=== PATIENT | female | born 1965 | race Caucasian/White ===

== ENCOUNTER 2018-02-27 12:02 | Inpatient (IN) | payer MEDICAID ==
[~2018-02-27] VITALS: Ht 167.6 cm; Wt 87.0 kg
[2018-02-27] MEDS ORDERED: ACETAMINOPHEN 325 MG TAB PO STA (12:33)
[2018-02-27] MEDS ORDERED: SODIUM CHLORIDE 0.9% 1L BAG IV* STA (12:33)
[2018-02-27] MEDS ORDERED: morphine 4 MG/ML VIAL IV STA (12:52)
[2018-02-27] MEDS ORDERED: ONDANSETRON 4 MG INJ IV STA (12:52)
[2018-02-27] MEDS ORDERED: PIPER-TAZO 3.375 GM IV (PMX) 100 ML IVPB ONE (13:00)
[2018-02-27] MEDS ORDERED: ONDANSETRON 4 MG INJ IV PRN ×2 (14:30→16:30)
[2018-02-27] MEDS ORDERED: ACETAMINOPHEN 325 MG TAB PO PRN (14:30)
--- NOTE | 2018-02-27 14:41 | ERD ---
ER Documentation Chief Complaint Chief Complaint Fever with abdominal pain and vomiting HPI Patient is a 52-year-old female with thyroid disease who presents with fever and abdominal pain. The patient had 1 month ago high fever and pain around the bellybutton. Went away but yesterday she started again with fever and abdominal pain. She had vomiting. She went to an urgent care 1 month ago was given a pain medicine but has not taken any pain medicine yet today. The pain is in the right side of her abdomen. Upon review of old medical records this is the patient's first visit to the emergency department. The patient does not currently have a primary doctor. ROS All systems reviewed and are negative except as per history of present illness. Medications Home Meds No Active Prescriptions or Reported Meds Allergies Allergies: Coded Allergies: No Known Allergy (Unverified , 02/27/18) PMhx/Soc History of Surgery: No Anesthesia Reaction: No Hx Neurological Disorder: No Hx Respiratory Disorders: No Hx Cardiac Disorders: No Hx Psychiatric Problems: No Hx Miscellaneous Medical Probl: Yes (thyroid, not taking meds.) Hx Alcohol Use: No Hx Substance Use: No Hx Tobacco Use: No Smoking Status: Never smoker FmHx Family History: No diabetes Physical Exam Vitals Vital Signs Date Temp Pulse Resp B/P (MAP) Pulse Ox O2 O2 Flow FiO2 Time Delivery Rate 02/27/18 101.5 110 20 128/76 94 12:15 (93) 02/27/18 101.5 110 20 128/76 94 12:13 (93) Physical Exam Const: Moderate distress Head: Atraumatic Eyes: Normal Conjunctiva ENT: Normal External Ears, Nose and Mouth. Neck: Full range of motion. No meningismus. Resp: Clear to auscultation bilaterally Cardio: Regular rate and rhythm, no murmurs Abd: Soft, right upper and right lower quadrant tenderness to palpation without rebound Skin: No petechiae or rashes Back: No midline or flank tenderness Ext: No cyanosis, or edema Neur: Awake and alert Psych: Normal Mood and Affect Result Diagram: 02/27/18 1255 02/27/18 1255 Results 24 hrs Laboratory Tests Test 02/27/18 12:55 02/27/18 13:00 White Blood Count 14.7 10^3/ul Red Blood Count 4.61 10^6/ul Hemoglobin 13.7 g/dl Hematocrit 40.2 % Mean Corpuscular Volume 87.2 fl Mean Corpuscular Hemoglobin 29.7 pg Mean Corpuscular Hemoglobin Concent 34.1 g/dl Red Cell Distribution Width 12.1 % Platelet Count 296 10^3/UL Mean Platelet Volume 10.4 fl Immature Granulocytes % 0.300 % Neutrophils % 76.4 % Lymphocytes % 17.2 % Monocytes % 5.7 % Eosinophils % 0.1 % Basophils % 0.3 % Nucleated Red Blood Cells % 0.0 /100WBC Immature Granulocytes # 0.050 10^3/ul Neutrophils # 11.2 10^3/ul Lymphocytes # 2.5 10^3/ul Monocytes # 0.8 10^3/ul Eosinophils # 0.0 10^3/ul Basophils # 0.0 10^3/ul Nucleated Red Blood Cells # 0.0 10^3/ul Prothrombin Time 14.7 Sec Prothrombin Time Ratio 1.1 INR International Normalized Ratio 1.13 Activated Partial Thromboplast Time 38.1 Sec Urine Color YELLOW Urine Clarity CLEAR Urine pH 6.0 Urine Specific [place] 1.015 Urine Ketones TRACE mg/dL Urine Nitrite NEGATIVE mg/dL Urine Bilirubin NEGATIVE mg/dL Urine Urobilinogen 2+ mg/dL Urine Leukocyte Esterase TRACE [place]/ul Urine Microscopic RBC 1 /HPF Urine Microscopic WBC 4 /HPF Urine Hemoglobin 1+ mg/dL Urine Glucose NEGATIVE mg/dL Urine Total Protein NEGATIVE mg/dl Sodium Level 138 mmol/L Potassium Level 3.9 mmol/L Chloride Level 100 mmol/L Carbon Dioxide Level 30 mmol/L Anion Gap 8 Blood Urea Nitrogen 8 mg/dl Creatinine 0.71 mg/dl Est Glomerular Filtrat Rate mL/min > 60 mL/min Glucose Level 139 mg/dl Calcium Level 9.1 mg/dl Total Bilirubin 0.5 mg/dl Direct Bilirubin 0.00 mg/dl Indirect Bilirubin 0.5 mg/dl Aspartate Amino Transf (AST/SGOT) 17 IU/L Alanine Aminotransferase (ALT/SGPT) 23 IU/L Alkaline Phosphatase 108 IU/L Troponin I < 0.012 ng/ml Total Protein 8.0 g/dl Albumin 3.9 g/dl Globulin 4.10 g/dl Albumin/Globulin Ratio 0.95 Lipase 72 U/L POC Venous Lactate 1.4 mmol/L Current Medications Medications Dose Sig/Melody Start Time Status Last (Trade) Ordered Route PRN Stop Time Admin Dose Reason Admin Sodium 2,640 ml BOLUS OVER 2 02/27/18 DC 02/27/18 Chloride HOURS STAT 12:33 13:22 (NS) IV* 02/27/18 12:34 650 mg ONCE STAT 02/27/18 DC 02/27/18 Acetaminophen PO 12:33 13:21 (Tylenol 02/27/18 Tab) 12:34 Morphine 4 mg ONCE STAT 02/27/18 DC 02/27/18 Sulfate IV 12:52 13:21 (morphine) 02/27/18 12:53 Ondansetron 4 mg ONCE STAT 02/27/18 DC 02/27/18 HCl (Zofran IV 12:52 13:21 Inj) 02/27/18 12:53 Piperacillin 100 ml @ ONCE ONCE 02/27/18 DC 02/27/18 Sod/ 200 mls/hr IVPB 13:00 13:23 Tazobactam 02/27/18 Sod 13:29 Ondansetron 4 mg BRIDGE ORDER 02/27/18 HCl (Zofran PRN IV 14:30 Inj) NAUSEA AND/OR 02/28/18 VOMITING 14:29 650 mg ER BRIDGE 02/27/18 Acetaminophen PRN PO MILD 14:30 (Tylenol PAIN(1-3)OR 02/28/18 Tab) ELEVATED TEMP 14:29 Procedures/MDM CT abdomen pelvis shows acute appendicitis per radiology. Ultrasound of the gallbladder read by radiology. Chest x-ray read by radiology. EKG read by me: Rate/Rhythm: Regular rate and rhythm at a normal rate Intervals: Normal Impression: No evidence of ischemia or arrhythmia Sepsis Documentation: Patient's infectious symptoms have not stabilized and the patient is at risk of rapid decompensation. The patient will be admitted for careful hydration, antibiotic therapy, and infectious source control. SEVERE SEPSIS CRITERIA: Infectious source: Appendicitis End organ damage indicated by: No endorgan damage at this time SEPSIS MANAGEMENT Time of recognition of sepsis: 12:55 PM. Time of recognition of severe sepsis: No severe sepsis at this time. Time of recognition of septic shock: No septic shock at this time. 3 HOUR BUNDLE Blood cultures x 2 before broad-spectrum antibiotics: Yes 30 ml/kg NS bolus completed Initial lactate 1.4 Repeat lactate pending SEPTIC SHOCK ASSESSMENT: No lactic acid > 4.0 No persistent hypotension (SBP < 90 or 40 mmHg drop, MAP < 65) despite 30 mL/kg IV fluid bolus VOLUME REASSESSMENT FOR SEPTIC SHOCK: No septic shock at this time PERSISTENT HYPOTENSION TREATMENT: Comfort care no Central line not Required Vasopressor started not required I considered further perfusion assessment with CVP measurement, SCVO2, bedside ultrasound volume assessment, passive leg raise, trial of further fluid bolus. And proceeded with 30 ml/kg fluid bolus of NSS, broad spectrum antibiotics, and admission. I spoke with Dr. Willoughby the general surgeon novelty balloon assembler and packer who will see the patient in consultation. The patient will be admitted to the care of Dr. Veliz from the panel team to a medical surgical bed. CRITICAL CARE Critical care time 35 minutes Emergent fluid management while maintaining close respiratory support. Provision of immediate and broad-spectrum antibiotic therapy. Simultaneous assessment for possible sources in order to direct targeted therapy. Consideration for invasive and chemical support to prevent cardiopulmonary collapse. Critical care time is independent of procedures performed. Departure Diagnosis: Primary Impression: Appendicitis Appendicitis type: acute appendicitis Acute appendicitis type: unspecified acute appendicitis type Qualified Codes: K35.80 - Unspecified acute appendicitis Additional Impression: Sepsis Sepsis type: sepsis due to unspecified organism Qualified Codes: A41.9 - Sepsis, unspecified organism Condition: SUSHMA Camarena MD Feb 27, 2018 14:41
[2018-02-27 15:54] VITALS: BP 118/58; PULSE 88; RESP 18
[2018-02-27 16:01] VITALS: Ht 167.6 cm; Wt 87.0 kg
--- NOTE | 2018-02-27 16:04 | HP ---
Date/Time of Note Date/Time of Note DATE: 02/27/18 TIME: 16:04 Assessment/Plan VTE Prophylaxis SCD applied (from Nsg): Yes Pharmacological prophylaxis: NA/contraindicated Pharm contraindication: surgical contra Lines/Catheters IV Catheter Type (from Nrsg): Saline Lock Assessment/Plan Assessment/Plan 1. Sepsis secondary to appendicitis - Surgery on board and plans to take to OR tomorrow. Medically cleared to proceed with surgical intervention - Will keep NPO after midnight - IV antibiotics and pain control on board 2. Leukocytosis - secondary to #1 3. Fevers - Tylenol PRN - [place] cultures obtained 4. Diet - regular/NPO after midnight 5. GI ppx - H2 guicho 6. DVT ppx - SCD 7. Code status - Full 8. Disposition - Admit to med/surg for surgical intervention Result Diagram: 02/27/18 1255 02/27/18 1255 Results 24hrs Laboratory Tests Test 02/27/18 12:55 02/27/18 13:00 02/27/18 15:23 White Blood Count 14.7 H Red Blood Count 4.61 Hemoglobin 13.7 Hematocrit 40.2 Mean Corpuscular Volume 87.2 Mean Corpuscular Hemoglobin 29.7 Mean Corpuscular 34.1 Hemoglobin Concent Red Cell Distribution Width 12.1 Platelet Count 296 Mean Platelet Volume 10.4 Immature Granulocytes % 0.300 Neutrophils % 76.4 Lymphocytes % 17.2 Monocytes % 5.7 Eosinophils % 0.1 Basophils % 0.3 Nucleated Red Blood Cells % 0.0 Immature Granulocytes # 0.050 H Neutrophils # 11.2 H Lymphocytes # 2.5 Monocytes # 0.8 Eosinophils # 0.0 Basophils # 0.0 Nucleated Red Blood Cells # 0.0 Prothrombin Time 14.7 Prothrombin Time Ratio 1.1 INR International 1.13 Normalized Ratio Activated Partial Thromboplast 38.1 H Time Urine Color YELLOW Urine Clarity CLEAR Urine pH 6.0 Urine Specific [place] 1.015 Urine Ketones TRACE A Urine Nitrite NEGATIVE Urine Bilirubin NEGATIVE Urine Urobilinogen 2+ H Urine Leukocyte Esterase TRACE A Urine Microscopic RBC 1 Urine Microscopic WBC 4 Urine Hemoglobin 1+ H Urine Glucose NEGATIVE Urine Total Protein NEGATIVE Sodium Level 138 Potassium Level 3.9 Chloride Level 100 Carbon Dioxide Level 30 Anion Gap 8 Blood Urea Nitrogen 8 Creatinine 0.71 Est Glomerular Filtrat > 60 Rate mL/min Glucose Level 139 Calcium Level 9.1 Total Bilirubin 0.5 Direct Bilirubin 0.00 Indirect Bilirubin 0.5 Aspartate Amino 17 Transf (AST/SGOT) Alanine 23 Aminotransferase (ALT/SGPT) Alkaline Phosphatase 108 Troponin I < 0.012 Total Protein 8.0 Albumin 3.9 Globulin 4.10 H Albumin/Globulin Ratio 0.95 Lipase 72 POC Venous Lactate 1.4 0.9 HPI/ROS Admit Date/Time Admit Date/Time Feb 27, 2018 at 14:17 Hx of Present Illness 52 yo F with no significant past medical history presents to ED with worsening RLQ abdominal pain for the past 4 days. Patient states she has been experiencing this intermittent pain in RLQ for the past month but only came today since has been having associated nausea, fever, chills, and loss of appetite for the past 4 days. Patient denies any chest pain, shortness of breath, dizziness, constipation, diarrhea, or urinary issues. She is nervous about going through an appendectomy secondary to son had complications during his recent procedure. ROS All 12 systems reviewed and pertinent positives as per HPI. All others negative. Constitutional: chills, febrile, nausea Eyes: No discharge ENT: No congestion Respiratory: No pain, No shortness of breath, No sputum, No wheezing Cardiovascular: No chest pain, No edema, No lightheadedness, No palpitations Gastrointestinal: pain, nausea; No constipation, No diarrhea, No vomiting Genitourinary: no complaints Musculoskeletal: no complaints Skin: no complaints Neurologic: no complaints Endocrine: no complaints Lymphatic: no complaints Psychological: nl mood/affect Immunologic: no complaints PMH/Family/Social Past Medical History Medical History: no pertinent history Medications Current Medications Ondansetron HCl (Zofran Inj) 4 mg BRIDGE ORDER PRN IV NAUSEA AND/OR VOMITING; Start 02/27/18 at 14:30; Stop 02/28/18 at 14:29 Acetaminophen (Tylenol Tab) 650 mg ER BRIDGE PRN PO MILD PAIN(1-3)OR ELEVATED TEMP; Start 02/27/18 at 14:30; Stop 02/28/18 at 14:29 Coded Allergies: No Known Allergy (Unverified , 02/27/18) Past Surgical History Past Surgical Hx: no surgical history Family History Significant Family History: no pertinent family hx Social History Alcohol Use: none Smoking Status: Never smoker Drug Use: none Exam/Review of Systems Vital Signs Vitals Vital Signs Date Temp Pulse Resp B/P (MAP) Pulse Ox O2 O2 Flow FiO2 Time Delivery Rate 02/27/18 98.9 88 18 118/58 94 Room Air 15:54 (78) Exam Exam General: no acute distress. awake and answering questions appropriately HEENT: NC/AT. PERRL. EOM intact Neck: supple CVS: S1, S2, regular rate and rhythm. no murmurs Lung: clear bilaterally. no wheezing or rhonchi Abd: soft, tender in RLQ, no rebound or guarding. +BS appreciated Ext: moving all extremities. no cyanosis, clubbing or edema Skin: no rashes or lesions appreciated Neuro: no focal deficits appreciated. motor and sensory intact Additional Comments no home medications Imaging: PROCEDURE: CT abdomen and pelvis without contrast. CLINICAL INDICATION: Abdominal pain. Fever. TECHNIQUE: CT scan of the abdomen and pelvis without contrast was performed and is reconstructed at 2.5 mm contiguous axial intervals from the dome of the diaphragm to the inferior pubic rami.. The patient was scanned without intravenous contrast. Sagittal and coronal reformatted images were obtained from the axial source images. The calculated radiation dose measures 1203 mGy centimeters. The CTDI measures 20.7 mGy. Individualized dose optimization technique was used for the performance of this exam. This included 1. Automated exposure control. 2. Adjustment of the mA and / or kV according to the patient's size. 3. Use of iterative reconstructed technique. COMPARISON: None. FINDINGS: The lung bases are clear of any infiltrate or nodule. No effusion is seen. The liver is of normal size and contour with no mass or ductal dilatation. No gallstones are visualized. No splenic, adrenal or pancreatic abnormalities present. Kidneys are of normal size and contour. No calculus or masses seen. There is mild right hydroureter nephrosis. No stones are detected. No bladder masses stone is present. Prostate and seminal vesicles are normal. There is no aneurysm. No adenopathy is present. No bowel mass or obstruction is present. There is phlegmonous infiltration of the fat in the right lower quadrant. Noted is thickening of the wall of the cecum and the ileum. The appendix is not confidently visualized, however, there is suggestion of a markedly distended inflamed appendix medial to the cecum. There are multiple reactive regional nodes . Findings are highly suspicious for appendicitis. Abscess cannot be ruled out. No ascites or gross pneumoperitoneum is visualized. The osseous structures are intact. IMPRESSION: Phlegmonous infiltration fat right pelvis with suggestion of markedly distended inflamed appendix on limited CT without intravenous or adequate oral contrast. Findings are suspicious for acute appendicitis. Abscess cannot be ruled out. Probable reactive thickening wall of terminal ileum and cecum. Reactive regional nodes. Mild right hydroureter nephrosis. No stones seen. The point of obstruction appears to be at the site of the phlegmon. Fatty liver. .Emanuel Jones MD, MD Date Time Electronically viewed and signed by .Emanuel Jones MD, on 02/27/2018 14: 04 PROCEDURE: Chest 1 views. CLINICAL INDICATION: Shortness of breath. Sepsis. TECHNIQUE: Single view of the chest was obtained. COMPARISON: None. FINDINGS: Mediastinum: Enlarged heart. Lungs: Hypoinflated lungs. Elevated right hemidiaphragm. Atelectasis versus minimal infiltrates in the right lower lobe. Atelectasis at the lung bases. No consolidations. No pneumothorax. Osseous structures: Intact. Other: None. IMPRESSION: Cardiomegaly. Atelectasis at the lung bases. Hypoinflated lungs with an elevated right hemidiaphragm. RPTAT: AA .Cristino Vasquez MD, Date Time Electronically viewed and signed by .Cristino Vasquez MD, on 02/27/2018 13:10 PROCEDURE: US Abdomen Limited. CLINICAL INDICATION: Abdominal pain and fever TECHNIQUE: Multiple real-time longitudinal and transverse images were acquired of the patient's right abdomen and retroperitoneum utilizing a curved array tr ansducer. COMPARISON: None FINDINGS: Pancreas: The pancreas is suboptimally visualized. Liver: The liver shows normal shape, parenchymal echogenicity and echotexture. The right hepatic lobe measures 15.0 cm craniocaudal, which is within normal limits. There is no definite focal lesion visualized in the liver. There is appropriate direction of the main portal vein. Bile ducts: The intrahepatic bile ducts are not dilated. Common bile duct measures 3 mm in diameter, within normal limits. Gallbladder: The gallbladder is unremarkable without cholelithiasis, wall thickening, pericholecystic fluid, or sonographic Hirsch's sign. Kidneys: The right kidney measures 10.3 cm in length. The parenchymal echogenicity and thickness appear within normal range. No focal lesions are visualized. No hydronephrosis. There is no ascites visualized in the right abdomen. RPTAT: ZZ IMPRESSION: Unremarkable ultrasound of the right upper abdomen. .Isabel Rangel MD, MD Date Time Electronically viewed and signed by .Isabel Rangel MD, MD on 02/27/2018 14:28 CROW CABEZAS MD Feb 27, 2018 16:04
[2018-02-27] MEDS ORDERED: DOCUSATE SODIUM 100 MG CAP PO PRN (16:30)
[2018-02-27] MEDS ORDERED: MAGNESIUM HYDROXIDE 30ML CUP PO PRN (16:30)
[2018-02-27] MEDS ORDERED: NACL 0.9% 3 ML SYG IV SCH (16:30)
[2018-02-27] MEDS: ACETAMINOPHEN 325 MG TAB PO PRN (18:55)
[2018-02-27 20:00] VITALS: BP 159/77; PULSE 99
[2018-02-27] MEDS: D5W-0.45 NACL + KCL 20 MEQ 1,000 ML IV SCH (20:42)
[2018-02-27] MEDS: FAMOTIDINE 20 MG INJ IV SCH (20:42)
[2018-02-27] MEDS: PIPER-TAZO 3.375 GM IV (PMX) 100 ML IVPB SCH (20:45)
[2018-02-27] MEDS: morphine SULFATE/PF (2 MG/2 ML) SYG IV PRN (20:51)
[2018-02-28] VITALS (27 sets, daily range): BP systolic 106–135; BP diastolic 52–62; PULSE 76–112; RESP 16–25
[2018-02-28] MEDS: HYDROCODONE/APAP (5/325) TAB PO PRN ×2 (00:35→17:01)
[2018-02-28] MEDS: morphine SULFATE/PF (2 MG/2 ML) SYG IV PRN ×3 (01:14→18:14)
[2018-02-28] MEDS: ACETAMINOPHEN 325 MG TAB PO PRN ×2 (03:11→20:46)
[2018-02-28] MEDS: PIPER-TAZO 3.375 GM IV (PMX) 100 ML IVPB SCH ×3 (06:00→21:57)
[2018-02-28] MEDS: D5W-0.45 NACL + KCL 20 MEQ 1,000 ML IV SCH (07:00)
[2018-02-28] MEDS ORDERED: BUPIVACAINE 0.5%/EPI (SDV) 30 ML INJ ONE (07:02)
--- NOTE | 2018-02-28 07:32 | CONS ---
Date/Time of Note Date/Time of Note DATE: 02/28/18 TIME: 07:29 Assessment/Plan Assessment/Plan Assessment/Plan Acute appendicitis Plan: Laparoscopic appendectomy, possible open. I discussed the procedure, indications, alternatives and risks in detail with the patient who has an excellent understanding of the nature of her situation and agrees to the proposed plan of therapy as outlined. Result Diagram: 02/28/18 0550 02/28/18 0550 Results 24hrs Laboratory Tests Test 02/27/18 12:55 02/27/18 13:00 02/27/18 15:23 02/27/18 16:16 White Blood 14.7 H Count Red Blood Count 4.61 Hemoglobin 13.7 Hematocrit 40.2 Mean Corpuscular 87.2 Volume Mean Corpuscular 29.7 Hemoglobin Mean Corpuscular 34.1 Hemoglobin Any nt Red Cell 12.1 Distribution Width Platelet Count 296 Mean Platelet 10.4 Volume Immature 0.300 Granulocytes % Neutrophils % 76.4 Lymphocytes % 17.2 Monocytes % 5.7 Eosinophils % 0.1 Basophils % 0.3 Nucleated Red 0.0 Blood Cells % Immature 0.050 H Granulocytes # Neutrophils # 11.2 H Lymphocytes # 2.5 Monocytes # 0.8 Eosinophils # 0.0 Basophils # 0.0 Nucleated Red 0.0 Blood Cells # Prothrombin Time 14.7 Prothrombin Time 1.1 Ratio INR 1.13 International Normalized Ratio Activated 38.1 H Partial Thrombop last Time Urine Color YELLOW Urine Clarity CLEAR Urine pH 6.0 Urine Specific 1.015 [place] Urine Ketones TRACE A Urine Nitrite NEGATIVE Urine Bilirubin NEGATIVE Urine 2+ H Urobilinogen Urine Leukocyte TRACE A Esterase Urine 1 Microscopic RBC Urine 4 Microscopic WBC Urine Hemoglobin 1+ H Urine Glucose NEGATIVE Urine Total NEGATIVE Protein Sodium Level 138 Potassium Level 3.9 Chloride Level 100 Carbon Dioxide 30 Level Anion Gap 8 Blood Urea 8 Nitrogen Creatinine 0.71 Est Glomerular > 60 Filtrat Rate mL/min Glucose Level 139 Calcium Level 9.1 Total Bilirubin 0.5 Direct Bilirubin 0.00 Indirect 0.5 Bilirubin Aspartate Amino 17 Transf (AST/SGOT ) Alanine 23 Aminotransferase (ALT/SGPT) Alkaline 108 Phosphatase Troponin I < 0.012 Total Protein 8.0 Albumin 3.9 Globulin 4.10 H Albumin/Globulin 0.95 Ratio Lipase 72 POC Venous 1.4 0.9 Lactate Lactic Acid 0.8 Level Test 12/31/18 05:50 White Blood 11.9 H Count Red Blood Count 4.02 L Hemoglobin 11.8 L Hematocrit 36.0 L Mean Corpuscular 89.6 Volume Mean Corpuscular 29.4 Hemoglobin Mean Corpuscular 32.8 Hemoglobin Any nt Red Cell 11.9 Distribution Width Platelet Count 262 Mean Platelet 11.0 H Volume Immature 0.300 Granulocytes % Neutrophils % 75.2 Lymphocytes % 16.4 Monocytes % 7.5 Eosinophils % 0.3 Basophils % 0.3 Nucleated Red 0.0 Blood Cells % Immature 0.040 H Granulocytes # Neutrophils # 9.0 H Lymphocytes # 2.0 Monocytes # 0.9 Eosinophils # 0.0 Basophils # 0.0 Nucleated Red 0.0 Blood Cells # Sodium Level 139 Potassium Level 4.1 Chloride Level 103 Carbon Dioxide 30 Level Anion Gap 6 Blood Urea 6 L Nitrogen Creatinine 0.79 Est Glomerular > 60 Filtrat Rate mL/min Glucose Level 140 Calcium Level 8.3 L Phosphorus Level 4.0 Magnesium Level 2.0 Consultation Date/Type/Reason Admit Date/Time Feb 27, 2018 at 14:17 Date of Consultation: Feb 28, 2018 Type of Consult General surgery Reason for Consultation Acute appendicitis Hx of Present Illness The patient is a 52-year-old female who presents with a one day history of abdominal pain which intensified in severity than localized to the right lower quadrant. She was noted to have a tender right lower quadrant, an elevated white blood cell count, and a CT compatible with acute appendicitis. The patient is admitted and surgical consultation is requested in that regard. Constitutional: no complaints Eyes: no complaints ENT: no complaints Respiratory: no complaints Cardiovascular: no complaints Gastrointestinal: no complaints, pain (Right lower quadrant) Genitourinary: no complaints Musculoskeletal: no complaints Skin: no complaints Neurologic: no complaints Endocrine: no complaints Lymphatic: no complaints Past Medical History Medical History: no pertinent history, other (Exogenous obesity) Medications Current Medications IV Flush (NS 3 ml) 3 ml PER PROTOCOL IV ; Start 02/27/18 at 16:30 Ondansetron HCl (Zofran Inj) 4 mg Q6H PRN IV NAUSEA AND/OR VOMITING Last administered on 02/27/18at 20:52; Admin Dose 4 MG; Start 02/27/18 at 16:30 Acetaminophen (Tylenol Tab) 650 mg Q6H PRN PO PAIN LEVEL 1-3 OR FEVER Last administered on 02/28/18at 03:11; Admin Dose 650 MG; Start 02/27/18 at 16:30 Acetaminophen/ Hydrocodone Bitart ([place] (5/325)) 1 tab Q6H PRN PO MODERATE PAIN LEVEL 4-6 Last administered on 02/28/18at 00:35; Admin Dose 1 TAB; Start 02/27/18 at 16:30 Morphine Sulfate (morphine SULFATE (PF)) 2 mg Q4H PRN IV SEVERE PAIN LEVEL 7-10 Last administered on 02/28/18at 01:14; Admin Dose 2 MG; Start 02/27/18 at 16:30 Docusate Sodium (Colace) 100 mg Q12H PRN PO CONSTIPATION; Start 02/27/18 at 16:30 Magnesium Hydroxide (Milk Of Mag) 30 ml DAILY PRN PO CONSTIPATION; Start 02/27/18 at 16:30 Famotidine (Pepcid Iv) 20 mg Q12 IV Last administered on 02/27/18at 20:42; Admin Dose 20 MG; Start 02/27/18 at 21:00 Piperacillin Sod/ Tazobactam Sod 100 ml @ 200 mls/hr Q8 IVPB Last administered on 02/27/18at 20:45; Admin Dose 200 MLS/HR; Start 02/27/18 at 22:00 Influenza Virus Vaccine Quadrival (Fluzone) 0.5 ml ONCE ONCE IM* ; Start 02/28/18 at 09:00; Stop 02/28/18 at 09:01 Potassium Chloride/Dextrose/ Sod Cl 1,000 ml @ 100 mls/hr Q10H IV Last administered on 02/27/18at 20:42; Admin Dose 100 MLS/HR; Start 02/27/18 at 21:00 Allergies: Coded Allergies: No Known Allergy (Unverified , 02/27/18) Past Surgical History Past Surgical Hx: no surgical history Family History Significant Family History: no pertinent family hx Social History Alcohol Use: none Smoking Status: Never smoker Drug Use: none Exam/Review of Systems Vital Signs Vitals Vital Signs Date Temp Pulse Resp B/P (MAP) Pulse Ox O2 O2 Flow FiO2 Time Delivery Rate 02/28/18 99.5 03:12 02/28/18 101 120/58 95 Room Air 02:00 (78) 02/27/18 18 15:54 Intake and Output 12/02/27/18 02/28/18 1414:59 22:59 06:59 IntakeIntake Total 2640 ml 680 ml OutputOutput Total 400 ml BalanceBalance 2640 ml 280 ml Exam Constitutional: alert, oriented Psych: no complaints Head: normocephalic Eyes: nl conjunctiva ENMT: nl external ears & nose Neck: supple Respiratory: clear to auscultation Cardiovascular: regular rate and rhythm Gastrointestinal: tender (In the right lower quadrant with slight guarding and no rebound) Extremities: normal pulses 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 Medications Medications Current Medications IV Flush (NS 3 ml) 3 ml PER PROTOCOL IV ; Start 02/27/18 at 16:30 Ondansetron HCl (Zofran Inj) 4 mg Q6H PRN IV NAUSEA AND/OR VOMITING Last administered on 02/27/18at 20:52; Admin Dose 4 MG; Start 02/27/18 at 16:30 Acetaminophen (Tylenol Tab) 650 mg Q6H PRN PO PAIN LEVEL 1-3 OR FEVER Last administered on 02/28/18at 03:11; Admin Dose 650 MG; Start 02/27/18 at 16:30 Acetaminophen/ Hydrocodone Bitart ([place] (5/325)) 1 tab Q6H PRN PO MODERATE PAIN LEVEL 4-6 Last administered on 02/28/18at 00:35; Admin Dose 1 TAB; Start 02/27/18 at 16:30 Morphine Sulfate (morphine SULFATE (PF)) 2 mg Q4H PRN IV SEVERE PAIN LEVEL 7-10 Last administered on 02/28/18at 01:14; Admin Dose 2 MG; Start 02/27/18 at 16:30 Docusate Sodium (Colace) 100 mg Q12H PRN PO CONSTIPATION; Start 02/27/18 at 16:30 Magnesium Hydroxide (Milk Of Mag) 30 ml DAILY PRN PO CONSTIPATION; Start 02/27/18 at 16:30 Famotidine (Pepcid Iv) 20 mg Q12 IV Last administered on 02/27/18at 20:42; Admin Dose 20 MG; Start 02/27/18 at 21:00 Piperacillin Sod/ Tazobactam Sod 100 ml @ 200 mls/hr Q8 IVPB Last administered on 02/27/18at 20:45; Admin Dose 200 MLS/HR; Start 02/27/18 at 22:00 Influenza Virus Vaccine Quadrival (Fluzone) 0.5 ml ONCE ONCE IM* ; Start 02/28/18 at 09:00; Stop 02/28/18 at 09:01 Potassium Chloride/Dextrose/ Sod Cl 1,000 ml @ 100 mls/hr Q10H IV Last administered on 02/27/18at 20:42; Admin Dose 100 MLS/HR; Start 02/27/18 at 21:00 KELTON MOREL MD Feb 28, 2018 07:32
--- NOTE | 2018-02-28 07:43 | PREAC ---
Date/Time of Note Date/Time of Note DATE: 02/28/18 TIME: 07:42 Anesthesia Eval and Record Evaluation Time Pre-Procedure Interview DATE: 02/28/18 TIME: 07:42 Age 52 Sex female NPO: 8 hrs Preoperative diagnosis Acute Appendicitis Planned procedure Laparoscopic Appendectomy Past Medical History Past Medical History: Includes Endo: Hypothyroid GI: Obesity Heme: Anemia Surgery & Anesthesia Issues No known issue Meds Anticoagulation: No Beta Jaime within 24 hr: No Reason Beta Jaime not given: Pt. not on B-Jaime No Active Prescriptions or Reported Meds Current Medications IV Flush (NS 3 ml) 3 ml PER PROTOCOL IV ; Start 02/27/18 at 16:30 Ondansetron HCl (Zofran Inj) 4 mg Q6H PRN IV NAUSEA AND/OR VOMITING Last administered on 02/27/18at 20:52; Admin Dose 4 MG; Start 02/27/18 at 16:30 Acetaminophen (Tylenol Tab) 650 mg Q6H PRN PO PAIN LEVEL 1-3 OR FEVER Last administered on 02/28/18at 03:11; Admin Dose 650 MG; Start 02/27/18 at 16:30 Acetaminophen/ Hydrocodone Bitart ([place] (5/325)) 1 tab Q6H PRN PO MODERATE PAIN LEVEL 4-6 Last administered on 02/28/18at 00:35; Admin Dose 1 TAB; Start 02/27/18 at 16:30 Morphine Sulfate (morphine SULFATE (PF)) 2 mg Q4H PRN IV SEVERE PAIN LEVEL 7-10 Last administered on 02/28/18at 01:14; Admin Dose 2 MG; Start 02/27/18 at 16:30 Docusate Sodium (Colace) 100 mg Q12H PRN PO CONSTIPATION; Start 02/27/18 at 16:30 Magnesium Hydroxide (Milk Of Mag) 30 ml DAILY PRN PO CONSTIPATION; Start 02/27/18 at 16:30 Famotidine (Pepcid Iv) 20 mg Q12 IV Last administered on 02/27/18at 20:42; Admin Dose 20 MG; Start 02/27/18 at 21:00 Piperacillin Sod/ Tazobactam Sod 100 ml @ 200 mls/hr Q8 IVPB Last administered on 02/27/18at 20:45; Admin Dose 200 MLS/HR; Start 02/27/18 at 22:00 Influenza Virus Vaccine Quadrival (Fluzone) 0.5 ml ONCE ONCE IM* ; Start 02/28/18 at 09:00; Stop 02/28/18 at 09:01 Potassium Chloride/Dextrose/ Sod Cl 1,000 ml @ 100 mls/hr Q10H IV Last administered on 02/27/18at 20:42; Admin Dose 100 MLS/HR; Start 02/27/18 at 21:00 Meds reviewed: Yes Allergies Coded Allergies: No Known Allergy (Unverified , 02/27/18) Allergies Reviewed: Yes Labs/Studies Labs Reviewed: Reviewed by anesthesiologist Result Diagram: 02/28/18 0550 02/28/18 0550 Laboratory Tests 02/28/18 05:50 test: Negative Pre-procedure Exam Last vitals Vital Signs Date Temp Pulse Resp B/P (MAP) Pulse Ox O2 O2 Flow FiO2 Time Delivery Rate 02/28/18 99.5 03:12 02/28/18 101 120/58 95 Room Air 02:00 (78) 02/27/18 18 15:54 Airway: Adequate mouth opening, Adequate thyromental dist Mallampati: Mallampati II Teeth: Normal Lung: Normal Heart: Normal ASA Physical Status ASA physical status: 2 Emergency: E Planned Anesthetic General/MAC: ETT Nerve block: TAP (bilateral) Planned Pain Management Single shot nerve block, Parenteral pain med Pre-operative Attestations Prior to commencing anesthesia and surgery, the patient was re-evaluated, there was verification of: *The patient's identity *The results of appropriate recent lab work and preoperative vital signs *The above evaluation not changing prior to induction *Anesthetic plan, risk benefits, alternative and complications discussed with patient/family; questions answered; patient/family understands, accepts and wishes to proceed. CHAPIS FOURNIER MD Feb 28, 2018 07:43
[2018-02-28] MEDS ORDERED: ROCURONIUM 50 MG INJ ONE (07:48)
[2018-02-28] MEDS ORDERED: FENTAnyl 50 MCG/ML VIAL ONE ×2 (07:48→08:15)
[2018-02-28] MEDS ORDERED: MIDAZOLAM 1 MG/ML 2 ML INJ ONE (07:48)
[2018-02-28] MEDS ORDERED: PROPOFOL 20 ML ONE (07:48)
[2018-02-28] MEDS ORDERED: ROPIVACAINE 0.2% 20 ML VIAL ONE (07:49)
[2018-02-28] MEDS ORDERED: METOCLOPRAMIDE 10 MG INJ ONE (08:15)
[2018-02-28] MEDS ORDERED: CEFAZOLIN 1 GM INJ ONE (08:15)
[2018-02-28] MEDS ORDERED: DEXAMETHASONE 4 MG/ML 5 ML INJ ONE (08:15)
[2018-02-28] MEDS ORDERED: KETOROLAC 30 MG INJ ONE (08:15)
[2018-02-28] MEDS ORDERED: ONDANSETRON 4 MG INJ ONE (08:15)
[2018-02-28] MEDS ORDERED: METOCLOPRAMIDE 10 MG INJ IV PRN (08:30)
[2018-02-28] MEDS ORDERED: ONDANSETRON 4 MG INJ IV PRN (08:30)
[2018-02-28] MEDS ORDERED: HYDROmorphONE 1 MG/5 ML IV SYRINGE IV PRN ×3 (08:30)
[2018-02-28] MEDS ORDERED: EPHEDrine SULFATE 50 MG/5 ML SYG IV PRN (08:30)
[2018-02-28] MEDS ORDERED: FENTAnyl 50 MCG/ML VIAL IV PRN ×3 (08:30)
[2018-02-28] MEDS ORDERED: LABETALOL HCL 20MG INJ IV PRN (08:30)
[2018-02-28] MEDS ORDERED: DIPHENHYDRAMINE 50 MG INJ IV PRN (08:30)
[2018-02-28] MEDS ORDERED: MEPERIDINE 25 MG INJ IV PRN (08:30)
[2018-02-28] MEDS ORDERED: GLYCOPYRROLATE 1 MG INJ ONE (08:34)
[2018-02-28] MEDS ORDERED: NEOSTIGMINE 3 MG/3 ML SYRINGE ONE (08:34)
--- NOTE | 2018-02-28 08:55 | OPR ---
Date/Time of Note Date/Time of Note DATE: 02/28/18 TIME: 08:48 Operative Report Procedure Date: Feb 28, 2018 Preoperative Diagnosis Acute appendicitis Postoperative Diagnosis Acute appendicitis with localized peritonitis and phlegmon involving cecum and terminal ileum Operation/Procedure Performed 1. Diagnostic laparoscopy 2. Open appendectomy 3. Placement of drain Surgeon Kelton Morel MD Fireworks Assembly Supervisor None Anesthesia Type: general Anesthesiologist: CHAPIS FOURNIER MD Estimated Blood Loss: 100 - 150 ml's Transfusion none Specimen Appendix Grafts/Implants none Tubes/Drains #19 Round Aubrey drain Complications none Pt Condition Post Procedure: stable Disposition: PACU Indications Acute appendicitis Procedure Description After satisfactory general endotracheal anesthesia was achieved abdominal examination showed a mass in the right lower quadrant. The abdomen was then insufflated with carbon dioxide through an umbilical Veress needle to 15 mmHg pressure. The Veress needle was removed and a 5 mm trocar was placed. A 5 mm 0 degree lens was placed. Laparoscopy showed a phlegmonous mass in the right lower quadrant. Under direct visualization a 5 mm suprapubic trocar was placed. The camera was placed into the suprapubic port and dissection was begun. The appendix was not identifiable and the cecum and terminal ileum were refused in a softball sized phlegmon. Further dissection could not delineate the structures. It was elected to open. The abdomen was opened through a transverse right lower quadrant incision. Now the cecum and terminal ileum were able to be mobilized into the wound, and from each other this revealed a very large appendix which was now able to be dissected to its base. The mesoappendix was divided with a laparoscopic stapler, as was the appendix at the cecum. The appendix was submitted as such. Total hemostasis was completed with electrocautery. Because of the verity of the infection and because of bleeding, it was elected to place a drain. A #19 round Aubrey drain was placed draining the right lower quadrant and paracolic gutter and exiting through the suprapubic port site where it was secured to the skin with 2-0 nylon. The umbilical trocar was removed. The posterior rectus sheath and peritoneum were closed with running #1 Vicryl. Anterior rectus sheath and fascia was closed with 2 running sutures of #2 Vicryl. Subcutaneous tissues were irrigated and skin closed with reymundo sponge, needle and instrument counts were reported as correct x2. KELTON MOREL MD Feb 28, 2018 08:55
[2018-02-28] MEDS ORDERED: INFLUENZA VIRUS VACCINE 0.5 ML (DISPENSING) IM* ONE (09:00)
[2018-02-28] MEDS ORDERED: OXYCODONE/ACETAMINOPHEN (5/325) TAB PO PRN ×2 (09:00)
[2018-02-28] MEDS ORDERED: morphine 2 MG INJ IV PRN (09:00)
--- NOTE | 2018-02-28 09:01 | PAC ---
Date/Time of Note Date/Time of Note DATE: 02/28/18 TIME: 09:00 Post-Anesthesia Notes Post-Anesthesia Note Last documented vital signs Vital Signs Date Temp Pulse Resp B/P (MAP) Pulse Ox O2 O2 Flow FiO2 Time Delivery Rate 02/28/18 100.3 82 16 106/56 93 Face Mask 8L 09:12 (68) 02/28/18 101 120/58 95 Room Air 02:00 (78) 02/27/18 18 15:54 Activity: WNL Respiratory function: WNL Cardiovascular function: WNL Mental status: Baseline Pain reasonably controlled: Yes Hydration appropriate: Yes Nausea/Vomiting absent: Yes CHAPIS FOURNIER MD Feb 28, 2018 09:01
[2018-02-28] MEDS ORDERED: MEPERIDINE 25 MG INJ ONE (09:21)
[2018-02-28] MEDS ORDERED: HYDROmorphONE 1 MG/5 ML IV SYRINGE IV ONE (09:21)
[2018-02-28] MEDS: FAMOTIDINE 20 MG INJ IV SCH ×2 (11:40→20:31)
--- NOTE | 2018-02-28 12:36 | PN ---
Date/Time of Note Date/Time of Note DATE: 02/28/18 TIME: 12:34 Objective Vitals Vital Signs Date Temp Pulse Resp B/P (MAP) Pulse Ox O2 O2 Flow FiO2 Time Delivery Rate 02/28/18 Nasal 2.0 11:15 Cannula 02/28/18 96 16 114/55 95 10:37 (74) 02/28/18 100.5 09:02 Intake and Output 02/27/18 02/27/18 02/28/18 1515:00 23:00 07:00 IntakeIntake Total 2640 ml 680 ml 800 ml OutputOutput Total 400 ml BalanceBalance 2640 ml 280 ml 800 ml Results Result Diagram: 02/28/18 0550 02/28/18 0550 Medications Medications Current Medications IV Flush (NS 3 ml) 3 ml PER PROTOCOL IV ; Start 02/27/18 at 16:30 Ondansetron HCl (Zofran Inj) 4 mg Q6H PRN IV NAUSEA AND/OR VOMITING Last administered on 02/27/18at 20:52; Admin Dose 4 MG; Start 02/27/18 at 16:30 Acetaminophen (Tylenol Tab) 650 mg Q6H PRN PO PAIN LEVEL 1-3 OR FEVER Last administered on 02/28/18at 03:11; Admin Dose 650 MG; Start 02/27/18 at 16:30 Acetaminophen/ Hydrocodone Bitart ([place] (5/325)) 1 tab Q6H PRN PO MODERATE PAIN LEVEL 4-6 Last administered on 02/28/18at 00:35; Admin Dose 1 TAB; Start 02/27/18 at 16:30 Morphine Sulfate (morphine SULFATE (PF)) 2 mg Q4H PRN IV SEVERE PAIN LEVEL 7-10 Last administered on 02/28/18at 11:40; Admin Dose 2 MG; Start 02/27/18 at 16:30 Docusate Sodium (Colace) 100 mg Q12H PRN PO CONSTIPATION; Start 02/27/18 at 16:30 Magnesium Hydroxide (Milk Of Mag) 30 ml DAILY PRN PO CONSTIPATION; Start 02/27/18 at 16:30 Famotidine (Pepcid Iv) 20 mg Q12 IV Last administered on 02/28/18at 11:40; Admin Dose 20 MG; Start 02/27/18 at 21:00 Piperacillin Sod/ Tazobactam Sod 100 ml @ 200 mls/hr Q8 IVPB Last administered on 02/27/18at 20:45; Admin Dose 200 MLS/HR; Start 02/27/18 at 22:00 Hydromorphone HCl (Dilaudid) 0.2 mg PACU PRN IV MILD PAIN LEVEL 1-3; Start 02/28/18 at 08:30; Stop 02/28/18 at 13:00 Hydromorphone HCl (Dilaudid) 0.4 mg PACU PRN IV MODERATE PAIN LEVEL 4-6; Start 02/28/18 at 08:30; Stop 02/28/18 at 13:00 Hydromorphone HCl (Dilaudid) 0.6 mg PACU PRN IV SEVERE PAIN LEVEL 7-10 Last administered on 02/28/18at 09:27; Admin Dose 0.6 MG; Start 02/28/18 at 08:30; Stop 02/28/18 at 13:00 Fentanyl (Sublimaze) 25 mcg PACU ORDER PRN IV MILD PAIN LEVEL 1-3; Start 02/28/18 at 08:30; Stop 02/28/18 at 13:00 Fentanyl (Sublimaze) 50 mcg PACU ORDER PRN IV MODERATE PAIN LEVEL 4-6; Start 02/28/18 at 08:30; Stop 02/28/18 at 13:00 Fentanyl (Sublimaze) 75 mcg PACU ORDER PRN IV SEVERE PAIN LEVEL 7-10; Start 02/28/18 at 08:30; Stop 02/28/18 at 13:00 Ondansetron HCl (Zofran Inj) 4 mg PACU ORDER PRN IV NAUSEA AND/OR VOMITING Last administered on 02/28/18at 09:28; Admin Dose 4 MG; Start 02/28/18 at 08:30; Stop 02/28/18 at 13:00 Metoclopramide HCl (Reglan) 10 mg PACU ORDER PRN IV NAUSEA AND/OR VOMITING; Start 02/28/18 at 08:30; Stop 02/28/18 at 13:00 Labetalol HCl (Labetalol) 5 mg PACU ORDER PRN IV ELEVATED BLOOD PRESSURE; Start 02/28/18 at 08:30; Stop 02/28/18 at 13:00 Ephedrine Sulfate 5 mg PACU ORDER PRN IV BLOOD PRESSURE SUPPORT; Start 02/28/18 at 08:30; Stop 02/28/18 at 13:00 Meperidine HCl (Demerol) 25 mg PACU ORDER PRN IV POST OPERATIVE SHIVERING Last administered on 02/28/18at 09:27; Admin Dose 25 MG; Start 02/28/18 at 08:30; Stop 02/28/18 at 13:00 Diphenhydramine HCl (Benadryl) 25 mg PACU ORDER PRN IV PRURITUS; Start 02/28/18 at 08:30; Stop 02/28/18 at 13:00 Oxycodone/ Acetaminophen (Percocet (5/ 325)) 1 tab Q4H PRN PO PAIN LEVEL 1-3 OR FEVER; Start 02/28/18 at 09:00 Oxycodone/ Acetaminophen (Percocet (5/ 325)) 2 tab Q4H PRN PO PAIN LEVEL 4-6; Start 02/28/18 at 09:00 Morphine Sulfate (morphine) 2 mg ONCE PRN IV SEVERE PAIN LEVEL 7-10; Start 02/28/18 at 09:00; Stop 02/28/18 at 13:00 Ondansetron HCl (Zofran Inj) 4 mg Q6H PRN IV NAUSEA; Start 02/28/18 at 09:00 VTE Prophylaxis Risk score (from Nsg)>0 risk: 3 SCD applied (from Nsg): Yes Lines/Catheters IV Catheter Type: Cooley in Place: No Assessment/Plan Hospital Course Subjective Status post lap appendectomy Patient feeling well, mild abdominal discomfort Objective Physical exam General: Patient is laying in bed and answers questions appropriately Mentation: Patient is alert and oriented 4, Head: Normocephalic atraumatic Eyes: EOMI, pupils reactive to light Neck: Supple, nontender, midline Respiratory: Clear to auscultation bilaterally Cardiovascular: regular rate, no obvious murmurs Gastrointestinal: Mild tenderness to palpation, bowel sounds heard. Neurological: Moves all extremities spontaneously Skin: No new skin lesions, drain in place Assessment/Plan 1. Sepsis secondary to appendicitis -s/p lap appy -some perotinitis and phlegmon seen on surgery -IV abx for now 2. Leukocytosis - secondary to #1 3. Fevers - Tylenol PRN - johnston cultures obtained 4. Diet - clears, increase as tolerated 5. GI ppx - H2 guicho 6. DVT ppx - SCD 7. Code status - Full 8. Disposition -keep in house for IV abx and drain management DARIUS VILLALPANDO Feb 28, 2018 12:36
[2018-02-28] MEDS: CEPASTAT LOZENGE MT PRN (23:56)
[2018-03-01 02:20] VITALS: BP 119/61; PULSE 84; RESP 16
[2018-03-01] MEDS: PIPER-TAZO 3.375 GM IV (PMX) 100 ML IVPB SCH ×3 (05:29→21:46)
[2018-03-01 07:52] VITALS: BP 132/69; PULSE 83; RESP 17
[2018-03-01] MEDS: FAMOTIDINE 20 MG INJ IV SCH ×2 (09:17→20:24)
--- NOTE | 2018-03-01 11:39 | QN ---
Documentation Comment Postoperative day #1 T-max 101 Leukocytosis persists Dressing is dry. YAO serosanguineous. Abdominal examination is benign Plan: Continue medical management KELTON MOREL MD Mar 01, 2018 11:39
--- NOTE | 2018-03-01 11:51 | PN ---
Date/Time of Note Date/Time of Note DATE: 03/01/18 TIME: 11:50 Objective Vitals Vital Signs Date Temp Pulse Resp B/P (MAP) Pulse Ox O2 O2 Flow FiO2 Time Delivery Rate 03/01/18 97.7 83 17 132/69 95 07:52 (90) 02/28/18 Nasal 2.0 20:25 Cannula Intake and Output 02/28/18 02/28/18 03/01/18 1515:00 23:00 07:00 IntakeIntake Total 1700 ml 100 ml OutputOutput Total 230 ml 90 ml 1030 ml BalanceBalance 1470 ml 10 ml -1030 ml Results Result Diagram: 03/01/18 0504 03/01/18 0504 Medications Medications Current Medications IV Flush (NS 3 ml) 3 ml PER PROTOCOL IV ; Start 02/27/18 at 16:30 Ondansetron HCl (Zofran Inj) 4 mg Q6H PRN IV NAUSEA AND/OR VOMITING Last administered on 02/27/18at 20:52; Admin Dose 4 MG; Start 02/27/18 at 16:30 Acetaminophen (Tylenol Tab) 650 mg Q6H PRN PO PAIN LEVEL 1-3 OR FEVER Last administered on 02/28/18at 20:46; Admin Dose 650 MG; Start 02/27/18 at 16:30 Acetaminophen/ Hydrocodone Bitart ([place] (5/325)) 1 tab Q6H PRN PO MODERATE PAIN LEVEL 4-6 Last administered on 02/28/18at 17:01; Admin Dose 1 TAB; Start 02/27/18 at 16:30 Morphine Sulfate (morphine SULFATE (PF)) 2 mg Q4H PRN IV SEVERE PAIN LEVEL 7-10 Last administered on 02/28/18at 18:14; Admin Dose 2 MG; Start 02/27/18 at 16:30 Docusate Sodium (Colace) 100 mg Q12H PRN PO CONSTIPATION; Start 02/27/18 at 16:30 Magnesium Hydroxide (Milk Of Mag) 30 ml DAILY PRN PO CONSTIPATION; Start 02/27/18 at 16:30 Famotidine (Pepcid Iv) 20 mg Q12 IV Last administered on 03/01/18at 09:17; Admin Dose 20 MG; Start 02/27/18 at 21:00 Piperacillin Sod/ Tazobactam Sod 100 ml @ 200 mls/hr Q8 IVPB Last administered on 03/01/18at 05:29; Admin Dose 200 MLS/HR; Start 02/27/18 at 22:00 Oxycodone/ Acetaminophen (Percocet (5/ 325)) 1 tab Q4H PRN PO PAIN LEVEL 1-3 OR FEVER; Start 02/28/18 at 09:00 Oxycodone/ Acetaminophen (Percocet (5/ 325)) 2 tab Q4H PRN PO PAIN LEVEL 4-6; Start 02/28/18 at 09:00 Ondansetron HCl (Zofran Inj) 4 mg Q6H PRN IV NAUSEA; Start 02/28/18 at 09:00 Phenol (Cepastat Lozenge) 1 lozenge Q1H PRN MT DRY MOUTH Last administered on 02/28/18at 23:56; Admin Dose 1 LOZENGE; Start 02/28/18 at 22:00 VTE Prophylaxis Risk score (from Ns)>0 risk: 4 SCD applied (from Ns): Yes Lines/Catheters IV Catheter Type: Cooley in Place: No Assessment/Plan Hospital Course Subjective no bowel movement or flatus yet Objective Physical exam General: Patient is laying in bed and answers questions appropriately Mentation: Patient is alert and oriented 4, Head: Normocephalic atraumatic Eyes: EOMI, pupils reactive to light Neck: Supple, nontender, midline Respiratory: Clear to auscultation bilaterally Cardiovascular: regular rate, no obvious murmurs Gastrointestinal: Mild/moderate tenderness to palpation, bowel sounds heard. Neurological: Moves all extremities spontaneously Skin: No new skin lesions, drain in place Assessment/Plan 1. Sepsis secondary to appendicitis -s/p open appy -some perotinitis and phlegmon seen on surgery -IV abx for now 2. Leukocytosis - secondary to #1 3. Fevers - Tylenol PRN - johnston cultures obtained 4. Diet - clears, increase as tolerated when bowel movement 5. GI ppx - H2 guicho 6. DVT ppx - SCD 7. Code status - Full 8. Disposition -keep in house for IV abx and drain management -ambulate DARIUS VILLALPANDO Mar 01, 2018 11:51
[2018-03-01] MEDS: OXYCODONE/ACETAMINOPHEN (5/325) TAB PO PRN (12:15)
[2018-03-01 14:02] VITALS: BP 143/78; PULSE 83; RESP 19
[2018-03-01] MEDS: ONDANSETRON 4 MG INJ IV PRN ×2 (14:25→20:24)
[2018-03-01] MEDS: morphine SULFATE/PF (2 MG/2 ML) SYG IV PRN (15:15)
[2018-03-01 20:30] VITALS: BP 111/73; PULSE 122; RESP 22
[2018-03-01 22:47] VITALS: BP 143/69; PULSE 115
[2018-03-01] MEDS ORDERED: SOD CHLORIDE 0.9% 500 ML IV ONE (23:30)
[2018-03-01] MEDS ORDERED: HYDROmorphONE 1 MG/ML SYG IV ONE (23:30)
[2018-03-02] VITALS (9 sets, daily range): BP systolic 115–149; BP diastolic 71–82; PULSE 99–122; RESP 18–20
[2018-03-02] MEDS: PIPER-TAZO 3.375 GM IV (PMX) 100 ML IVPB SCH (05:40)
[2018-03-02] MEDS: ONDANSETRON 4 MG INJ IV PRN ×3 (07:21→22:56)
[2018-03-02] MEDS: FAMOTIDINE 20 MG INJ IV SCH (08:46)
[2018-03-02] MEDS: SOD CHLORIDE 0.9% 1,000 ML IV SCH ×2 (08:51→19:54)
--- NOTE | 2018-03-02 11:45 | CONS ---
DATE OF ADMISSION: 02/27/2018 DATE OF CONSULTATION: 03/02/2018 TYPE OF CONSULTATION: Infectious disease. REASON FOR CONSULTATION: Antibiotic management. HISTORY OF PRESENT ILLNESS: Helena Umanzor is a 52-year-old female who was brought in with fever and abdominal pain and is being seen for antibiotic management. Past problems include: 1. Thyroid disease. She comes in with fever and abdominal pain. One month ago she had fever and pa in around her umbilicus. This went away, but the day prior to admission, she began to have fever and abdominal pain with nausea and vomiting and is in the right side of her abdomen. On admission, her temperature was 101.5. White count was 14.7, H and H of 13.7 and 40.2, platelet count 296,000. BUN and creatinine 8/0.71, glucose 139. Blood cultures did not grow anything. Urine showed mixed gram-p ositive organisms, probably contaminant. A gallbladder ultrasound was done which was unremarkable. Chest x-ray, hypoinflated lungs. CT scan of the abdomen and pelvis showed phelgmonous infiltrate of fat in the right pelvis with suggestion of markedly distended inflamed appendix on limited CT without IV or adequate oral contrast. Findings suspicious for acute appendicitis. Abscess cannot be ruled out. Probable reactive thickening wall of the terminal ileum and cecum, reactive regional nodes, mil d right hydroureter. No stones seen. Point of obstruction appears to be at the site of the phlegmon . This was done on 02/27/2018. HOSPITAL COURSE: The patient was seen by Dr. Rosalino Willoughby who felt she had acute appendicitis and p lanned for a laparoscopic appendectomy on the 02/28/2018. He did an open appendectomy with placement of drains. He is found acute appendicitis with localized peritonitis and phlegmon involving the cec um and the terminal ileum. The patient was placed on Zosyn on 02/27/2018. Today, the white count ju mped up to 22.2 with 84% neutrophils, 10% polys. YAO drain is serosanguinous. Her T-max on 9 was 101. Her white count was 14.0, H and H 11 and 32.8, platelet count 306,000, BUN and creatinine 13/0.87, glucose 205. On 03/01/2018 she had no bowel movement or flatus. PAST MEDICAL HISTORY: Operations as outlined. FAMILY HISTORY: Noncontributory. SOCIAL HISTORY: She does not smoke, drink or abuse drugs. ALLERGIES: None to penicillin, sulfa or foods. MEDICATIONS: Per chart. REVIEW OF SYSTEMS: Noncontributory. PHYSICAL EXAMINATION: GENERAL: The patient is well-developed, well-nourished female who is awake, responsive, in no acute distress. VITAL SIGNS: Stable. She is afebrile. SKIN: Without generalized rash. HEENT: Within normal limits. NECK: Supple. LYMPH NODES: None palpable. CHEST: Decreased breath sounds at the bases. ABDOMEN: Soft, minimally tender in the right lower quadrant with bandages present and YAO drain. EXTREMITIES: Without cyanosis, clubbing, or edema. RECTAL AND GENITAL: Deferred. NEUROLOGIC: No focal neurological abnormalities. IMPRESSION AND PLAN: The patient has presented with acute appendicitis with probable perforation and phelgmonous changes. She is on appropriate antibiotic therapy despite the fact that her white count jumped up to 22.2. Her temperature is 98.9. Blood cultures so far are negative. Will repeat blood cultures. I will dictate my findings to the hospitalists and to Dr. Willoughby. Dictated By: EARNEST MALDONADO MD, JD/STEFAN Conf#: [id number] DID#: [id number] CC: CROW CABEZAS MD;*End*
--- NOTE | 2018-03-02 12:15 | QN ---
Documentation Comment Postoperative day #2 Afebrile throughout, although white blood cell count is elevated to 22,000 Her abdominal examination is benign and YAO drainage is serous She is passing flatus Plan: Continue medical management. Advance diet to full liquids. Follow WBC KELTON MOREL MD Mar 02, 2018 12:15
--- NOTE | 2018-03-02 13:14 | PN ---
Date/Time of Note Date/Time of Note DATE: 03/02/18 TIME: 13:11 Objective Vitals Vital Signs Date Temp Pulse Resp B/P (MAP) Pulse Ox O2 O2 Flow FiO2 Time Delivery Rate 03/02/18 104 12:29 03/02/18 98.0 20 132/72 100 Nasal 2.0 11:58 (92) Cannula Intake and Output 03/01/18 03/01/18 03/02/18 1515:00 23:00 07:00 IntakeIntake Total 1100 ml 520 ml 1320 ml OutputOutput Total 120 ml 300 ml BalanceBalance 1100 ml 400 ml 1020 ml Results Result Diagram: 03/02/18 0421 03/02/18 0421 Medications Medications Current Medications IV Flush (NS 3 ml) 3 ml PER PROTOCOL IV ; Start 02/27/18 at 16:30 Acetaminophen (Tylenol Tab) 650 mg Q6H PRN PO PAIN LEVEL 1-3 OR FEVER Last administered on 02/28/18at 20:46; Admin Dose 650 MG; Start 02/27/18 at 16:30 Morphine Sulfate (morphine SULFATE (PF)) 2 mg Q4H PRN IV SEVERE PAIN LEVEL 7-10 Last administered on 03/01/18at 15:15; Admin Dose 2 MG; Start 02/27/18 at 16:30 Docusate Sodium (Colace) 100 mg Q12H PRN PO CONSTIPATION; Start 02/27/18 at 16:30 Magnesium Hydroxide (Milk Of Mag) 30 ml DAILY PRN PO CONSTIPATION; Start 02/27/18 at 16:30 Famotidine (Pepcid Iv) 20 mg Q12 IV Last administered on 03/02/18 08:46; Admin Dose 20 MG; Start 02/27/18 at 21:00 Ondansetron HCl (Zofran Inj) 4 mg Q6H PRN IV NAUSEA Last administered on 03/02/18 07:21; Admin Dose 4 MG; Start 02/28/18 at 09:00 Phenol (Cepastat Lozenge) 1 lozenge Q1H PRN MT DRY MOUTH Last administered on 02/28/18at 23:56; Admin Dose 1 LOZENGE; Start 02/28/18 at 22:00 Oxycodone/ Acetaminophen (Percocet (5/ 325)) 1 tab Q4H PRN PO MODERATE PAIN LEVEL 4-6 Last administered on 03/01/18at 12:15; Admin Dose 1 TAB; Start 03/01/18 at 12:00 Sodium Chloride 1,000 ml @ 75 mls/hr [id number] IV Last administered on 03/02/18at 08:51; Admin Dose 75 MLS/HR; Start 03/02/18 at 08:30 Meropenem/Sodium Chloride 50 ml @ 100 mls/hr Q8 IVPB ; Start 03/02/18 at 14:00 VTE Prophylaxis Risk score (from Ns)>0 risk: 5 SCD applied (from Ns): Yes Lines/Catheters IV Catheter Type: Cooley in Place: No Assessment/Plan Hospital Course Subjective flatus present, patient had some nausea, vomiting, tachycardia but feels better now Objective Physical exam General: Patient is laying in bed and answers questions appropriately Mentation: Patient is alert and oriented 4, Head: Normocephalic atraumatic Eyes: EOMI, pupils reactive to light Neck: Supple, nontender, midline Respiratory: Clear to auscultation bilaterally Cardiovascular: regular rate, no obvious murmurs Gastrointestinal: Mild/moderate tenderness to palpation, bowel sounds heard. Neurological: Moves all extremities spontaneously Skin: No new skin lesions, drain in place Assessment/Plan 1. Sepsis secondary to appendicitis -s/p open appy -some peritonitis and phlegmon seen on surgery -IV abx for now, ID on board 2. Leukocytosis - secondary to #1 - increased 3. Fevers - Tylenol PRN - johnston cultures obtained 4. Diet - clears, increase as tolerated when bowel movement 5. GI ppx - H2 guicho 6. DVT ppx - SCD 7. Code status - Full 8. Disposition -keep in house for IV abx and drain management -tele upgrade for worseing sepsis, ID on board -ambulate DARIUS VILLALPANDO Mar 02, 2018 13:14
[2018-03-02] MEDS: MEROPENEM 1 GM/50ML(PMX) 50 ML IVPB SCH ×2 (14:25→21:17)
[2018-03-02] MEDS ORDERED: morphine LIQ (10 MG/5 ML) CUP PO PRN (16:30)
[2018-03-02] MEDS: SUCRALFATE (100 MG/ML) 10ML CUP PO SCH ×2 (17:42→19:54)
[2018-03-02] MEDS: CEPASTAT LOZENGE MT PRN (19:54)
[2018-03-02] MEDS: OXYCODONE/ACETAMINOPHEN (5/325) TAB PO PRN (21:44)
[2018-03-03] VITALS (9 sets, daily range): BP systolic 125–147; BP diastolic 69–77; PULSE 67–117; RESP 17–18
[2018-03-03] MEDS: MEROPENEM 1 GM/50ML(PMX) 50 ML IVPB SCH ×3 (05:43→21:13)
[2018-03-03] MEDS ORDERED: PANTOPRAZOLE 40 MG INJ IV SCH (06:00)
[2018-03-03] MEDS: SUCRALFATE (100 MG/ML) 10ML CUP PO SCH ×4 (08:24→21:13)
--- NOTE | 2018-03-03 09:20 | QN ---
Documentation Comment Postoperative day #3 Afebrile throughout Continued symptomatic improvement Leukocytosis improving Had a bowel movement YAO drainage mostly serous Plan: Continue medical management Possible discharge in the next day or so pending patient's progress KELTON MOREL MD Mar 03, 2018 09:20
[2018-03-03] MEDS: SOD CHLORIDE 0.9% 1,000 ML IV SCH (11:13)
[2018-03-03] MEDS: OXYCODONE/ACETAMINOPHEN (5/325) TAB PO PRN (13:47)
--- NOTE | 2018-03-03 15:23 | PN ---
Date/Time of Note Date/Time of Note DATE: 03/03/18 TIME: 15:21 Objective Vitals Vital Signs Date Temp Pulse Resp B/P (MAP) Pulse Ox O2 O2 Flow FiO2 Time Delivery Rate 03/03/18 96 12:00 03/03/18 98.2 17 127/77 94 11:15 (94) 03/03/18 Room Air 04:00 03/02/18 2.0 20:00 Intake and Output 03/02/18 03/02/18 03/03/18 1515:00 23:00 07:00 IntakeIntake Total 120 ml 700 ml 250 ml OutputOutput Total 100 ml 200 ml BalanceBalance 120 ml 600 ml 50 ml Results Result Diagram: 03/03/18 0625 03/03/18 06 Medications Medications Current Medications IV Flush (NS 3 ml) 3 ml PER PROTOCOL IV ; Start 02/27/18 at 16:30 Acetaminophen (Tylenol Tab) 650 mg Q6H PRN PO PAIN LEVEL 1-3 OR FEVER Last administered on 02/28/18at 20:46; Admin Dose 650 MG; Start 02/27/18 at 16:30 Docusate Sodium (Colace) 100 mg Q12H PRN PO CONSTIPATION; Start 02/27/18 at 16:30 Magnesium Hydroxide (Milk Of Mag) 30 ml DAILY PRN PO CONSTIPATION; Start 02/27/18 at 16:30 Ondansetron HCl (Zofran Inj) 4 mg Q6H PRN IV NAUSEA Last administered on 03/02/18at 22:56; Admin Dose 4 MG; Start 02/28/18 at 09:00 Phenol (Cepastat Lozenge) 1 lozenge Q1H PRN MT DRY MOUTH Last administered on 03/02/18 19:54; Admin Dose 1 LOZENGE; Start 02/28/18 at 22:00 Oxycodone/ Acetaminophen (Percocet (5/ 325)) 1 tab Q4H PRN PO MODERATE PAIN LEVEL 4-6 Last administered on 03/03/18 13:47; Admin Dose 1 TAB; Start 03/01/18 at 12:00 Meropenem/Sodium Chloride 50 ml @ 100 mls/hr Q8 IVPB Last administered on 03/03/18 13:47; Admin Dose 100 MLS/HR; Start 03/02/18 at 14:00 Sucralfate (Carafate Susp) 1 gm QID PO Last administered on 03/03/18at 13:34; Admin Dose 1 GM; Start 03/02/18 at 17:00 Morphine Sulfate (morphine) 6 mg Q4H PRN PO SEVERE PAIN LEVEL 7-10; Start 03/02/18 at 16:30 Pantoprazole (Protonix Tab) 40 mg DAILY@06 PO ; Start 03/04/18 at 06:00 VTE Prophylaxis Risk score (from Ns)>0 risk: 5 SCD applied (from [facility]): Yes Lines/Catheters IV Catheter Type: Cooley in Place: No Assessment/Plan Hospital Course Subjective had bowel movement overnight, pain is improved Objective Physical exam General: Patient is laying in bed and answers questions appropriately Mentation: Patient is alert and oriented 4, Head: Normocephalic atraumatic Eyes: EOMI, pupils reactive to light Neck: Supple, nontender, midline Respiratory: Clear to auscultation bilaterally Cardiovascular: regular rate, no obvious murmurs Gastrointestinal: Mild/moderate tenderness to palpation, bowel sounds heard. Neurological: Moves all extremities spontaneously Skin: No new skin lesions, drain in place Assessment/Plan 1. Sepsis secondary to appendicitis/ovarian infection? -s/p open appy -some peritonitis and phlegmon seen on surgery -IV abx for now, ID on board 2. Leukocytosis - secondary to #1 - increased 3. Fevers - Tylenol PRN - johnston cultures obtained 4. Diet - mech soft now that patient had bowel movement, advance as tolerated daily 5. GI ppx - H2 guicho 6. DVT ppx - SCD 7. Code status - Full 8. Disposition -keep in house for IV abx and drain management -ambulate DARIUS VILLALPANDO Mar 03, 2018 15:22
--- NOTE | 2018-03-03 15:46 | CONS ---
Date/Time of Note Date/Time of Note DATE: 03/03/18 TIME: 15:45 Assessment/Plan Assessment/Plan Hospital Course Patient is alert lying comfortably in bed she is afebrile in no distress no shortness of breath at rest. WBC 16.2 H&H 11.5 and 34.6 platelets 447 neutrophils 72.2 BUN 25 creatinine 0.75 Microbiology: Blood cultures since admission negative intraoperative culture growing alphahemolytic strep species Antimicrobials: Meropenem Physical examination: This is a morbidly obese well-developed middle-aged woman who is alert in no distress. Head atraumatic normocephalic neck is supple chest rise symmetrical breath sounds diminished bases. Heart: S1-S2. Abdomen distended soft mid abdominal incision with reymundo clean dry and intact no drainage, YAO present. Bowel sounds present. Extremities without cyanosis. Assessment: 1. Sepsis on admission 2. Acute appendicitis with peritonitis and phlegmon, status post open appendectomy 02/28/18 3. Morbid obesity Plan: Patient is stable, on appropriate antibiotics, blood cultures remain negative, continue present care, repeat chest x-ray in a.m., follow surgical recommendations Result Diagram: 03/03/18 0625 03/03/18 0625 Results 24hrs Laboratory Tests Test 03/03/18 06:25 White Blood Count 16.2 #H Red Blood Count 3.95 L Hemoglobin 11.5 L Hematocrit 34.6 L Mean Corpuscular Volume 87.6 Mean Corpuscular Hemoglobin 29.1 Mean Corpuscular Hemoglobin Concent 33.2 Red Cell Distribution Width 12.1 Platelet Count 447 H Mean Platelet Volume 10.4 Immature Granulocytes % 0.700 H Neutrophils % 72.2 Lymphocytes % 20.0 Monocytes % 6.8 Eosinophils % 0.1 Basophils % 0.2 Nucleated Red Blood Cells % 0.0 Immature Granulocytes # 0.120 H Neutrophils # 11.7 H Lymphocytes # 3.2 H Monocytes # 1.1 H Eosinophils # 0.0 Basophils # 0.0 Nucleated Red Blood Cells # 0.0 Sodium Level 138 Potassium Level 4.2 Chloride Level 103 Carbon Dioxide Level 28 Anion Gap 7 Blood Urea Nitrogen 25 H Creatinine 0.75 Est Glomerular Filtrat Rate mL/min > 60 Glucose Level 159 Calcium Level 8.0 L Magnesium Level 2.2 Total Bilirubin 0.2 Direct Bilirubin 0.00 Indirect Bilirubin 0.2 Aspartate Amino Transf (AST/SGOT) 14 L Alanine Aminotransferase (ALT/SGPT) 23 Alkaline Phosphatase 68 Total Protein 5.4 L Albumin 2.6 L Globulin 2.80 Albumin/Globulin Ratio 0.92 Consultation Date/Type/Reason Admit Date/Time Feb 27, 2018 at 14:17 Initial Consult Date 02/28/18 Type of Consult id Exam/Review of Systems Vital Signs Vitals Vital Signs Date Temp Pulse Resp B/P (MAP) Pulse Ox O2 O2 Flow FiO2 Time Delivery Rate 03/03/18 98.3 89 17 125/74 98 15:41 (91) 03/03/18 Room Air 04:00 03/02/18 2.0 20:00 Intake and Output 03/02/18 03/02/18 03/03/18 1515:00 23:00 07:00 IntakeIntake Total 120 ml 700 ml 250 ml OutputOutput Total 100 ml 200 ml BalanceBalance 120 ml 600 ml 50 ml Medications Medications Current Medications IV Flush (NS 3 ml) 3 ml PER PROTOCOL IV ; Start 02/27/18 at 16:30 Acetaminophen (Tylenol Tab) 650 mg Q6H PRN PO PAIN LEVEL 1-3 OR FEVER Last administered on 02/28/18at 20:46; Admin Dose 650 MG; Start 02/27/18 at 16:30 Docusate Sodium (Colace) 100 mg Q12H PRN PO CONSTIPATION; Start 02/27/18 at 16:30 Magnesium Hydroxide (Milk Of Mag) 30 ml DAILY PRN PO CONSTIPATION; Start 02/27/18 at 16:30 Ondansetron HCl (Zofran Inj) 4 mg Q6H PRN IV NAUSEA Last administered on 03/02/18 22:56; Admin Dose 4 MG; Start 02/28/18 at 09:00 Phenol (Cepastat Lozenge) 1 lozenge Q1H PRN MT DRY MOUTH Last administered on 03/02/18 19:54; Admin Dose 1 LOZENGE; Start 02/28/18 at 22:00 Oxycodone/ Acetaminophen (Percocet (5/ 325)) 1 tab Q4H PRN PO MODERATE PAIN LEVEL 4-6 Last administered on 03/03/18at 13:47; Admin Dose 1 TAB; Start 03/01/18 at 12:00 Meropenem/Sodium Chloride 50 ml @ 100 mls/hr Q8 IVPB Last administered on 03/03/18at 13:47; Admin Dose 100 MLS/HR; Start 03/02/18 at 14:00 Sucralfate (Carafate Susp) 1 gm QID PO Last administered on 03/03/18at 13:34; Admin Dose 1 GM; Start 03/02/18 at 17:00 Morphine Sulfate (morphine) 6 mg Q4H PRN PO SEVERE PAIN LEVEL 7-10; Start 03/02/18 at 16:30 Pantoprazole (Protonix Tab) 40 mg DAILY@06 PO ; Start 03/04/18 at 06:00 RAVINDRA PIERCE NP Mar 03, 2018 15:46
[2018-03-03] MEDS: ONDANSETRON 4 MG INJ IV PRN (21:14)
[2018-03-04] VITALS (9 sets, daily range): BP systolic 126–148; BP diastolic 63–72; PULSE 89–118; RESP 17–20
[2018-03-04] MEDS: OXYCODONE/ACETAMINOPHEN (5/325) TAB PO PRN ×2 (00:07→21:31)
[2018-03-04] MEDS: MEROPENEM 1 GM/50ML(PMX) 50 ML IVPB SCH ×2 (05:03→16:52)
[2018-03-04] MEDS: PANTOPRAZOLE (EC) 40 MG TAB PO SCH (05:03)
[2018-03-04] MEDS: SUCRALFATE (100 MG/ML) 10ML CUP PO SCH ×4 (08:34→20:35)
--- NOTE | 2018-03-04 09:37 | QN ---
Documentation Comment Postoperative day #4 Afebrile throughout Abdominal examination is benign. YAO drainage is serous. Patient is tolerating p.o. and had a bowel movement. Discharge home with drain and p.o. antibiotics. Will see in office in 1 week for drain removal KELTON MOREL MD Mar 04, 2018 09:37
[2018-03-04] MEDS ORDERED: CIPROFLOXACIN 400MG/D5W 200 ML IVPB SCH (13:30)
[2018-03-04] MEDS ORDERED: metroNIDAZOLE 500 MG/NS (PMX) 100 ML IVPB SCH (14:00)
[2018-03-04] MEDS: ONDANSETRON 4 MG INJ IV PRN (14:17)
--- NOTE | 2018-03-04 15:18 | CONS ---
Date/Time of Note Date/Time of Note DATE: 03/04/18 TIME: 15:17 Assessment/Plan Assessment/Plan Hospital Course Patient is awake lying comfortably in bed she is afebrile complained of nausea earlier status post Zofran she is in no distress family at bedside WBC 14.8 platelets 437 no shift no bands BUN 17 creatinine 0.65 Microbiology: blood culture remain negative intraoperative culture grew alphahemolytic strep species Antimicrobials: Meropenem Physical examination: This is a morbidly obese well-developed middle-aged woman who is alert in no distress. Head atraumatic normocephalic neck is supple chest rise symmetrical breath sounds diminished bases. Heart: S1-S2. Abdomen distended soft mid abdominal incision with reymundo clean dry and intact no drainage, YAO present. Bowel sounds present. Extremities without cyanosis. Assessment: 1. Sepsis on admission 2. Acute appendicitis with peritonitis and phlegmon, status post open appendectomy 02/28/18 3. Morbid obesity Plan: Patient is stable, doing better, WBC trending down, continue on current antibiotics for now, anticipate discharge on oral Augmentin once she is medically cleared Result Diagram: 03/04/18 0659 03/04/18 0659 Results 24hrs Laboratory Tests Test 03/04/18 06:59 White Blood Count 14.8 H Red Blood Count 3.60 L Hemoglobin 10.6 L Hematocrit 31.4 L Mean Corpuscular Volume 87.2 Mean Corpuscular Hemoglobin 29.4 Mean Corpuscular Hemoglobin Concent 33.8 Red Cell Distribution Width 12.3 Platelet Count 437 H Mean Platelet Volume 10.4 Immature Granulocytes % 1.500 H Neutrophils % 72.5 Lymphocytes % 18.0 Monocytes % 7.3 Eosinophils % 0.5 Basophils % 0.2 Nucleated Red Blood Cells % 0.0 Immature Granulocytes # 0.220 H Neutrophils # 10.7 H Lymphocytes # 2.7 Monocytes # 1.1 H Eosinophils # 0.1 Basophils # 0.0 Nucleated Red Blood Cells # 0.0 Sodium Level 135 Potassium Level 4.3 Chloride Level 100 Carbon Dioxide Level 28 Anion Gap 7 Blood Urea Nitrogen 17 Creatinine 0.65 Est Glomerular Filtrat Rate mL/min > 60 Glucose Level 138 Calcium Level 8.1 L Phosphorus Level 3.3 Magnesium Level 2.1 Consultation Date/Type/Reason Admit Date/Time Feb 27, 2018 at 14:17 Initial Consult Date 02/28/18 Type of Consult id Exam/Review of Systems Vital Signs Vitals Vital Signs Date Temp Pulse Resp B/P (MAP) Pulse Ox O2 O2 Flow FiO2 Time Delivery Rate 03/04/18 94 12:53 03/04/18 98.5 17 126/66 96 11:46 (86) 03/04/18 Nasal 2.0 08:00 Cannula Intake and Output 03/03/18 03/03/18 03/04/18 1515:00 23:00 07:00 IntakeIntake Total 450 ml 600 ml 250 ml OutputOutput Total 900 ml 500 ml BalanceBalance 450 ml -300 ml -250 ml Medications Medications Current Medications IV Flush (NS 3 ml) 3 ml PER PROTOCOL IV ; Start 02/27/18 at 16:30 Acetaminophen (Tylenol Tab) 650 mg Q6H PRN PO PAIN LEVEL 1-3 OR FEVER Last administered on 02/28/18at 20:46; Admin Dose 650 MG; Start 02/27/18 at 16:30 Docusate Sodium (Colace) 100 mg Q12H PRN PO CONSTIPATION; Start 02/27/18 at 16:30 Magnesium Hydroxide (Milk Of Mag) 30 ml DAILY PRN PO CONSTIPATION; Start 02/27/18 at 16:30 Ondansetron HCl (Zofran Inj) 4 mg Q6H PRN IV NAUSEA Last administered on 03/04/18at 14:17; Admin Dose 4 MG; Start 02/28/18 at 09:00 Phenol (Cepastat Lozenge) 1 lozenge Q1H PRN MT DRY MOUTH Last administered on 03/02/18at 19:54; Admin Dose 1 LOZENGE; Start 02/28/18 at 22:00 Oxycodone/ Acetaminophen (Percocet (5/ 325)) 1 tab Q4H PRN PO MODERATE PAIN LEVEL 4-6 Last administered on 03/04/18at 00:07; Admin Dose 1 TAB; Start 03/01/18 at 12:00 Sucralfate (Carafate Susp) 1 gm QID PO Last administered on 03/04/18at 13:15; Admin Dose 1 GM; Start 03/02/18 at 17:00 Morphine Sulfate (morphine) 6 mg Q4H PRN PO SEVERE PAIN LEVEL 7-10; Start 03/02/18 at 16:30 Pantoprazole (Protonix Tab) 40 mg DAILY@06 PO Last administered on 03/04/18at 05:03; Admin Dose 40 MG; Start 03/04/18 at 06:00 Ciprofloxacin/ Dextrose 200 ml @ 200 mls/hr Q12 IVPB Last administered on 03/04/18at 14:17; Admin Dose 200 MLS/HR; Start 03/04/18 at 13:30 Metronidazole 100 ml @ 100 mls/hr Q8 IVPB ; Start 03/04/18 at 14:00 RAVINDRA PIERCE NP Mar 04, 2018 15:17
--- NOTE | 2018-03-04 16:00 | PN ---
Date/Time of Note Date/Time of Note DATE: 03/04/18 TIME: 15:57 Objective Vitals Vital Signs Date Temp Pulse Resp B/P (MAP) Pulse Ox O2 O2 Flow FiO2 Time Delivery Rate 03/04/18 94 12:53 03/04/18 98.5 17 126/66 96 11:46 (86) 03/04/18 Nasal 2.0 08:00 Cannula Intake and Output 03/03/18 03/03/18 03/04/18 1515:00 23:00 07:00 IntakeIntake Total 450 ml 600 ml 250 ml OutputOutput Total 900 ml 500 ml BalanceBalance 450 ml -300 ml -250 ml Results Result Diagram: 03/04/18 0659 03/04/18 0659 Medications Medications Current Medications IV Flush (NS 3 ml) 3 ml PER PROTOCOL IV ; Start 02/27/18 at 16:30 Acetaminophen (Tylenol Tab) 650 mg Q6H PRN PO PAIN LEVEL 1-3 OR FEVER Last administered on 02/28/18at 20:46; Admin Dose 650 MG; Start 02/27/18 at 16:30 Docusate Sodium (Colace) 100 mg Q12H PRN PO CONSTIPATION; Start 02/27/18 at 16:30 Magnesium Hydroxide (Milk Of Mag) 30 ml DAILY PRN PO CONSTIPATION; Start 02/27/18 at 16:30 Ondansetron HCl (Zofran Inj) 4 mg Q6H PRN IV NAUSEA Last administered on 03/04/18at 14:17; Admin Dose 4 MG; Start 02/28/18 at 09:00 Phenol (Cepastat Lozenge) 1 lozenge Q1H PRN MT DRY MOUTH Last administered on 03/02/18at 19:54; Admin Dose 1 LOZENGE; Start 02/28/18 at 22:00 Oxycodone/ Acetaminophen (Percocet (5/ 325)) 1 tab Q4H PRN PO MODERATE PAIN LEVEL 4-6 Last administered on 03/04/18at 00:07; Admin Dose 1 TAB; Start 03/01/18 at 12:00 Sucralfate (Carafate Susp) 1 gm QID PO Last administered on 03/04/18at 13:15; Admin Dose 1 GM; Start 03/02/18 at 17:00 Morphine Sulfate (morphine) 6 mg Q4H PRN PO SEVERE PAIN LEVEL 7-10; Start 03/02/18 at 16:30 Pantoprazole (Protonix Tab) 40 mg DAILY@06 PO Last administered on 03/04/18at 05:03; Admin Dose 40 MG; Start 03/04/18 at 06:00 Meropenem/Sodium Chloride 50 ml @ 100 mls/hr Q12 IVPB ; Start 03/04/18 at 15:30 VTE Prophylaxis Risk score (from Ns)>0 risk: 4 SCD applied (from Ns): Yes Lines/Catheters IV Catheter Type: Cooley in Place: No Assessment/Plan Hospital Course Subjective improving mildly Objective Physical exam General: Patient is laying in bed and answers questions appropriately Mentation: Patient is alert and oriented 4, Head: Normocephalic atraumatic Eyes: EOMI, pupils reactive to light Neck: Supple, nontender, midline Respiratory: Clear to auscultation bilaterally Cardiovascular: regular rate, no obvious murmurs Gastrointestinal: Mild/moderate tenderness to palpation, bowel sounds heard. Neurological: Moves all extremities spontaneously Skin: No new skin lesions, drain in place Assessment/Plan 1. Sepsis secondary to appendicitis/ovarian infection? -s/p open appy -some peritonitis and phlegmon seen on surgery -IV abx for now, ID on board 2. Leukocytosis - secondary to #1 - increased 3. Fevers - Tylenol PRN - johnston cultures obtained 4. Diet - mech soft now that patient had bowel movement, advance as tolerated daily 5. GI ppx - H2 guicho 6. DVT ppx - SCD 7. Code status - Full 8. Disposition -keep in house for IV abx and drain management -ambulate DARIUS VILLALPANDO Mar 04, 2018 16:00
[2018-03-04] MEDS: CEPASTAT LOZENGE MT PRN (18:48)
[2018-03-05] VITALS (12 sets, daily range): BP systolic 129–135; BP diastolic 60–68; PULSE 86–111; RESP 17–20
[2018-03-05] MEDS: MEROPENEM 1 GM/50ML(PMX) 50 ML IVPB SCH ×3 (00:18→20:06)
[2018-03-05] MEDS: PANTOPRAZOLE (EC) 40 MG TAB PO SCH (05:42)
[2018-03-05] MEDS: SUCRALFATE (100 MG/ML) 10ML CUP PO SCH ×4 (09:00→20:06)
--- NOTE | 2018-03-05 13:03 | PN ---
Date/Time of Note Date/Time of Note DATE: 03/05/18 TIME: 13:03 Objective Vitals Vital Signs Date Temp Pulse Resp B/P (MAP) Pulse Ox O2 O2 Flow FiO2 Time Delivery Rate 03/05/18 99.5 102 20 129/60 93 Room Air 11:52 (83) 03/05/18 2.0 07:54 Intake and Output 03/04/18 03/04/18 03/05/18 1515:00 23:00 07:00 IntakeIntake Total 700 ml OutputOutput Total 120 ml 30 ml BalanceBalance 580 ml -30 ml Results Result Diagram: 03/05/18 0502 03/05/18 0502 Medications Medications Current Medications IV Flush (NS 3 ml) 3 ml PER PROTOCOL IV ; Start 02/27/18 at 16:30 Acetaminophen (Tylenol Tab) 650 mg Q6H PRN PO PAIN LEVEL 1-3 OR FEVER Last administered on 02/28/18at 20:46; Admin Dose 650 MG; Start 02/27/18 at 16:30 Docusate Sodium (Colace) 100 mg Q12H PRN PO CONSTIPATION Last administered on 03/05/18 05:42; Admin Dose 100 MG; Start 02/27/18 at 16:30 Magnesium Hydroxide (Milk Of Mag) 30 ml DAILY PRN PO CONSTIPATION Last administered on 03/05/18 05:42; Admin Dose 30 ML; Start 02/27/18 at 16:30 Ondansetron HCl (Zofran Inj) 4 mg Q6H PRN IV NAUSEA Last administered on 03/04/18 14:17; Admin Dose 4 MG; Start 02/28/18 at 09:00 Phenol (Cepastat Lozenge) 1 lozenge Q1H PRN MT DRY MOUTH Last administered on 03/04/18 18:48; Admin Dose 1 LOZENGE; Start 02/28/18 at 22:00 Oxycodone/ Acetaminophen (Percocet (5/ 325)) 1 tab Q4H PRN PO MODERATE PAIN LEVEL 4-6 Last administered on 03/04/18 21:31; Admin Dose 1 TAB; Start 03/01/18 at 12:00 Sucralfate (Carafate Susp) 1 gm QID PO Last administered on 03/05/18 12:45; Admin Dose 1 GM; Start 03/02/18 at 17:00 Pantoprazole (Protonix Tab) 40 mg DAILY@06 PO Last administered on 03/05/18at 05:42; Admin Dose 40 MG; Start 03/04/18 at 06:00 Meropenem/Sodium Chloride 50 ml @ 100 mls/hr Q12 IVPB Last administered on 03/05/18at 09:01; Admin Dose 100 MLS/HR; Start 03/04/18 at 15:30 VTE Prophylaxis Risk score (from [facility])>0 risk: 3 SCD applied (from [facility] [place]): Yes Lines/Catheters IV Catheter Type: Cooley in Place: No Assessment/Plan Hospital Course Subjective improving mildly Objective Physical exam General: Patient is laying in bed and answers questions appropriately Mentation: Patient is alert and oriented 4, Head: Normocephalic atraumatic Eyes: EOMI, pupils reactive to light Neck: Supple, nontender, midline Respiratory: Clear to auscultation bilaterally Cardiovascular: regular rate, no obvious murmurs Gastrointestinal: Mild/moderate tenderness to palpation, bowel sounds heard. Neurological: Moves all extremities spontaneously Skin: No new skin lesions, drain in place Assessment/Plan 1. Sepsis secondary to appendicitis/ovarian infection? -s/p open appy -some peritonitis and phlegmon seen on surgery -IV abx for now, ID on board 2. Leukocytosis - secondary to #1 - increased 3. Fevers - Tylenol PRN - johnston cultures obtained 4. Diet - mech soft now that patient had bowel movement, advance as tolerated daily 5. GI ppx - H2 guicho 6. DVT ppx - SCD 7. Code status - Full 8. Disposition -keep in house for IV abx and drain management, ID would still like IV abx, pending improvement in WBC, possible repeat CT -ambulate DARIUS VILLALPANDO Mar 05, 2018 13:03
--- NOTE | 2018-03-05 20:21 | CONS ---
Date/Time of Note Date/Time of Note DATE: 03/05/18 TIME: 20:19 Assessment/Plan Assessment/Plan Hospital Course 1355 Patient is awake, sitting in bed, family at bedside, no fevers Microbiology: blood culture remain negative, intraoperative culture grew alpha hemolytic strep species Antimicrobials: Meropenem Physical examination: This is a morbidly obese well-developed middle-aged woman who is alert in no distress. Head atraumatic normocephalic neck is supple chest rise symmetrical breath sounds diminished bases. Heart: S1-S2. Abdomen distended soft mid abdominal incision with reymundo clean dry and intact no d rainage, YAO present. Bowel sounds present. Extremities without cyanosis. Assessment: 1. S/p sepsis on admission 2. Acute appendicitis with peritonitis and phlegmon, status post open appendectomy 02/28/18 3. Morbid obesity Plan: Stable, still with leukocytosis, continue abx, f/u surgical rec-s, anticipate dc on oral Augmentin Result Diagram: 03/05/18 0502 03/05/18 0502 Results 24hrs Laboratory Tests Test 03/05/18 05:02 White Blood Count 15.5 H Red Blood Count 3.65 L Hemoglobin 10.8 L Hematocrit 32.0 L Mean Corpuscular Volume 87.7 Mean Corpuscular Hemoglobin 29.6 Mean Corpuscular Hemoglobin Concent 33.8 Red Cell Distribution Width 12.3 Platelet Count 457 H Mean Platelet Volume 10.2 Immature Granulocytes % 1.700 H Neutrophils % 69.4 Lymphocytes % 20.6 Monocytes % 6.5 Eosinophils % 1.5 Basophils % 0.3 Nucleated Red Blood Cells % 0.0 Immature Granulocytes # 0.260 H Neutrophils # 10.8 H Lymphocytes # 3.2 H Monocytes # 1.0 H Eosinophils # 0.2 Basophils # 0.1 Nucleated Red Blood Cells # 0.0 Sodium Level 135 Potassium Level 4.4 Chloride Level 97 Carbon Dioxide Level 30 Anion Gap 8 Blood Urea Nitrogen 13 Creatinine 0.65 Est Glomerular Filtrat Rate mL/min > 60 Glucose Level 129 Calcium Level 8.4 Phosphorus Level 3.5 Magnesium Level 2.0 Consultation Date/Type/Reason Admit Date/Time Feb 27, 2018 at 14:17 Initial Consult Date 02/28/18 Type of Consult id Exam/Review of Systems Vital Signs Vitals Vital Signs Date Temp Pulse Resp B/P (MAP) Pulse Ox O2 O2 Flow FiO2 Time Delivery Rate 1/5/19 100 20:00 03/05/18 99.0 18 133/63 97 19:27 (86) 03/05/18 Room Air 15:39 03/05/18 2.0 07:54 Intake and Output 03/04/18 03/04/18 03/05/18 1515:00 23:00 07:00 IntakeIntake Total 700 ml OutputOutput Total 120 ml 30 ml BalanceBalance 580 ml -30 ml Medications Medications Current Medications IV Flush (NS 3 ml) 3 ml PER PROTOCOL IV ; Start 02/27/18 at 16:30 Acetaminophen (Tylenol Tab) 650 mg Q6H PRN PO PAIN LEVEL 1-3 OR FEVER Last administered on 02/28/18at 20:46; Admin Dose 650 MG; Start 02/27/18 at 16:30 Docusate Sodium (Colace) 100 mg Q12H PRN PO CONSTIPATION Last administered on 03/05/18 05:42; Admin Dose 100 MG; Start 02/27/18 at 16:30 Magnesium Hydroxide (Milk Of Mag) 30 ml DAILY PRN PO CONSTIPATION Last administered on 03/05/18 05:42; Admin Dose 30 ML; Start 02/27/18 at 16:30 Ondansetron HCl (Zofran Inj) 4 mg Q6H PRN IV NAUSEA Last administered on 03/04/18 14:17; Admin Dose 4 MG; Start 02/28/18 at 09:00 Phenol (Cepastat Lozenge) 1 lozenge Q1H PRN MT DRY MOUTH Last administered on 03/04/18 18:48; Admin Dose 1 LOZENGE; Start 02/28/18 at 22:00 Oxycodone/ Acetaminophen (Percocet (5/ 325)) 1 tab Q4H PRN PO MODERATE PAIN LEVEL 4-6 Last administered on 03/04/18 21:31; Admin Dose 1 TAB; Start 03/01/18 at 12:00 Sucralfate (Carafate Susp) 1 gm QID PO Last administered on 03/05/18 20:06; Admin Dose 1 GM; Start 03/02/18 at 17:00 Pantoprazole (Protonix Tab) 40 mg DAILY@06 PO Last administered on 03/05/18 05:42; Admin Dose 40 MG; Start 03/04/18 at 06:00 Meropenem/Sodium Chloride 50 ml @ 100 mls/hr Q12 IVPB Last administered on 03/05/18at 20:06; Admin Dose 100 MLS/HR; Start 03/04/18 at 15:30 RAVINDRA PIERCE NP Mar 05, 2018 20:21
[2018-03-06] VITALS (11 sets, daily range): BP systolic 124–152; BP diastolic 61–80; PULSE 84–103; RESP 18–20
[2018-03-06] MEDS: ACETAMINOPHEN 325 MG TAB PO PRN ×2 (00:26→15:53)
[2018-03-06] MEDS: PANTOPRAZOLE (EC) 40 MG TAB PO SCH (05:04)
[2018-03-06] MEDS: MEROPENEM 1 GM/50ML(PMX) 50 ML IVPB SCH ×2 (08:02→21:01)
[2018-03-06] MEDS: SUCRALFATE (100 MG/ML) 10ML CUP PO SCH ×4 (08:02→21:01)
--- NOTE | 2018-03-06 12:40 | PN ---
Date/Time of Note Date/Time of Note DATE: 03/06/18 TIME: 12:39 Objective Vitals Vital Signs Date Temp Pulse Resp B/P (MAP) Pulse Ox O2 O2 Flow FiO2 Time Delivery Rate 03/06/18 95 12:33 03/06/18 98.4 20 138/70 96 Room Air 11:40 (92) 03/05/18 20:15 Intake and Output 03/05/18 03/05/18 03/06/18 1515:00 23:00 07:00 IntakeIntake Total 350 ml 600 ml 400 ml OutputOutput Total 130 ml 30 ml 30 ml BalanceBalance 220 ml 570 ml 370 ml Results Result Diagram: 03/06/18 0557 03/06/18 0557 Medications Medications Current Medications IV Flush (NS 3 ml) 3 ml PER PROTOCOL IV ; Start 02/27/18 at 16:30 Acetaminophen (Tylenol Tab) 650 mg Q6H PRN PO PAIN LEVEL 1-3 OR FEVER Last administered on 03/06/18 00:26; Admin Dose 650 MG; Start 02/27/18 at 16:30 Docusate Sodium (Colace) 100 mg Q12H PRN PO CONSTIPATION Last administered on 03/05/18 05:42; Admin Dose 100 MG; Start 02/27/18 at 16:30 Magnesium Hydroxide (Milk Of Mag) 30 ml DAILY PRN PO CONSTIPATION Last administered on 03/05/18 05:42; Admin Dose 30 ML; Start 02/27/18 at 16:30 Ondansetron HCl (Zofran Inj) 4 mg Q6H PRN IV NAUSEA Last administered on 03/04/18 14:17; Admin Dose 4 MG; Start 02/28/18 at 09:00 Phenol (Cepastat Lozenge) 1 lozenge Q1H PRN MT DRY MOUTH Last administered on 03/04/18 18:48; Admin Dose 1 LOZENGE; Start 02/28/18 at 22:00 Oxycodone/ Acetaminophen (Percocet (5/ 325)) 1 tab Q4H PRN PO MODERATE PAIN LEVEL 4-6 Last administered on 03/04/18 21:31; Admin Dose 1 TAB; Start 03/01/18 at 12:00 Sucralfate (Carafate Susp) 1 gm QID PO Last administered on 1/6/19at 12:31; Admin Dose 1 GM; Start 03/02/18 at 17:00 Pantoprazole (Protonix Tab) 40 mg DAILY@06 PO Last administered on 03/06/18at 05:04; Admin Dose 40 MG; Start 03/04/18 at 06:00 Meropenem/Sodium Chloride 50 ml @ 100 mls/hr Q12 IVPB Last administered on 03/06/18at 08:02; Admin Dose 100 MLS/HR; Start 03/04/18 at 15:30 VTE Prophylaxis Risk score (from [facility] [place])>0 risk: 6 SCD applied (from [facility] [place]): Yes Lines/Catheters IV Catheter Type: Cooley in Place: No Assessment/Plan Hospital Course Subjective improving mildly daily Objective Physical exam General: Patient is laying in bed and answers questions appropriately Mentation: Patient is alert and oriented 4, Head: Normocephalic atraumatic Eyes: EOMI, pupils reactive to light Neck: Supple, nontender, midline Respiratory: Clear to auscultation bilaterally Cardiovascular: regular rate, no obvious murmurs Gastrointestinal: Mild/moderate tenderness to palpation, bowel sounds heard. Neurological: Moves all extremities spontaneously Skin: No new skin lesions, drain in place Assessment/Plan 1. Sepsis secondary to appendicitis/ovarian infection? -s/p open appy -some peritonitis and phlegmon seen on surgery -IV abx for now, ID on board 2. Leukocytosis - secondary to #1 - increased 3. Fevers - Tylenol PRN - johnston cultures obtained 4. Diet - mech soft now that patient had bowel movement, advance as tolerated daily 5. GI ppx - H2 guicho 6. DVT ppx - SCD 7. Code status - Full 8. Disposition -keep in house for IV abx and drain management, ID would still like IV abx, pending improvement in WBC, possible repeat CT -ambulate DARIUS VILLALPANDO Mar 06, 2018 12:40
--- NOTE | 2018-03-06 13:12 | CONS ---
Date/Time of Note Date/Time of Note DATE: 03/06/18 TIME: 13:09 Assessment/Plan Assessment/Plan Result Diagram: 03/06/18 0557 03/06/18 0557 Results 24hrs Laboratory Tests Test 03/06/18 05:57 White Blood Count 13.6 H Red Blood Count 3.36 L Hemoglobin 9.9 L Hematocrit 29.8 L Mean Corpuscular Volume 88.7 Mean Corpuscular Hemoglobin 29.5 Mean Corpuscular Hemoglobin Concent 33.2 Red Cell Distribution Width 12.3 Platelet Count 460 H Mean Platelet Volume 10.0 Immature Granulocytes % 1.800 H Neutrophils % 72.8 Lymphocytes % 17.8 Monocytes % 6.0 Eosinophils % 1.3 Basophils % 0.3 Nucleated Red Blood Cells % 0.0 Immature Granulocytes # 0.240 H Neutrophils # 9.9 H Lymphocytes # 2.4 Monocytes # 0.8 Eosinophils # 0.2 Basophils # 0.0 Nucleated Red Blood Cells # 0.0 Sodium Level 136 Potassium Level 4.3 Chloride Level 99 Carbon Dioxide Level 29 Anion Gap 8 Blood Urea Nitrogen 11 Creatinine 0.58 Est Glomerular Filtrat Rate mL/min > 60 Glucose Level 111 Calcium Level 8.0 L Phosphorus Level 3.7 Magnesium Level 2.3 Consultation Date/Type/Reason Admit Date/Time Feb 27, 2018 at 14:17 Initial Consult Date SUBJECTIVE: Patient is awake, alert, afebrile. VS: stable. T: 98.4 LABS: reviewd. WBC- 13.6 Microbiology: blood culture remain negative, intraoperative culture grew alpha hemolytic strep species Antimicrobials: Meropenem Physical examination: GEN: This is a morbidly obese well-developed middle-aged woman who is alert in no distress. HENT: Head atraumatic normocephalic, neck is supple Pulm: chest rise symmetrical breath sounds diminished bases. Heart: RRR, S1-S2. Abdomen: distended soft mid abdominal incision with reymundo clean dry and intact no drainage, YAO present. Bowel sounds present. Extremities without cyanosis. Assessment: 1. S/p sepsis on admission 2. Acute appendicitis with peritonitis and phlegmon, status post open appendectomy 02/28/18 3. Morbid obesity Plan: Pt is stable. WBC is decreasing, no fevers. Will continue current abx,. Surgical rec-s. Anticipate dc on oral Augmentin. Exam/Review of Systems Vital Signs Vitals Vital Signs Date Temp Pulse Resp B/P (MAP) Pulse Ox O2 O2 Flow FiO2 Time Delivery Rate 03/06/18 95 12:33 03/06/18 98.4 20 138/70 96 Room Air 11:40 (92) 03/05/18 20:15 Intake and Output 03/05/18 03/05/18 03/06/18 1515:00 23:00 07:00 IntakeIntake Total 350 ml 600 ml 400 ml OutputOutput Total 130 ml 30 ml 30 ml BalanceBalance 220 ml 570 ml 370 ml Medications Medications Current Medications IV Flush (NS 3 ml) 3 ml PER PROTOCOL IV ; Start 02/27/18 at 16:30 Acetaminophen (Tylenol Tab) 650 mg Q6H PRN PO PAIN LEVEL 1-3 OR FEVER Last administered on 03/06/18 00:26; Admin Dose 650 MG; Start 02/27/18 at 16:30 Docusate Sodium (Colace) 100 mg Q12H PRN PO CONSTIPATION Last administered on 03/05/18 05:42; Admin Dose 100 MG; Start 02/27/18 at 16:30 Magnesium Hydroxide (Milk Of Mag) 30 ml DAILY PRN PO CONSTIPATION Last administered on 03/05/18 05:42; Admin Dose 30 ML; Start 02/27/18 at 16:30 Ondansetron HCl (Zofran Inj) 4 mg Q6H PRN IV NAUSEA Last administered on 03/04/18 14:17; Admin Dose 4 MG; Start 02/28/18 at 09:00 Phenol (Cepastat Lozenge) 1 lozenge Q1H PRN MT DRY MOUTH Last administered on 03/04/18 18:48; Admin Dose 1 LOZENGE; Start 02/28/18 at 22:00 Oxycodone/ Acetaminophen (Percocet (5/ 325)) 1 tab Q4H PRN PO MODERATE PAIN LEVEL 4-6 Last administered on 03/04/18 21:31; Admin Dose 1 TAB; Start 03/01/18 at 12:00 Sucralfate (Carafate Susp) 1 gm QID PO Last administered on 03/06/18 12:31; Admin Dose 1 GM; Start 03/02/18 at 17:00 Pantoprazole (Protonix Tab) 40 mg DAILY@06 PO Last administered on 1/6/19at 05:04; Admin Dose 40 MG; Start 03/04/18 at 06:00 Meropenem/Sodium Chloride 50 ml @ 100 mls/hr Q12 IVPB Last administered on 03/06/18at 08:02; Admin Dose 100 MLS/HR; Start 03/04/18 at 15:30 ROB WANG Mar 06, 2018 13:12
[2018-03-07] MEDS ORDERED: GUAIFENESIN 20 MG/ML 5ML CUP PO PRN (00:30)
[2018-03-07 02:00] VITALS: BP 122/67; PULSE 101; RESP 18
[2018-03-07] MEDS: SOD CHLORIDE 0.9% 1,000 ML IV SCH ×3 (02:27→15:46)
[2018-03-07] MEDS ORDERED: SOD CHLORIDE 0.9% 500 ML IV ONE (02:30)
[2018-03-07] MEDS: ACETAMINOPHEN 325 MG TAB PO PRN (05:34)
[2018-03-07] MEDS: PANTOPRAZOLE (EC) 40 MG TAB PO SCH (06:34)
[2018-03-07 08:05] VITALS: BP 133/60; PULSE 88; RESP 16
--- NOTE | 2018-03-07 08:56 | PN ---
Date/Time of Note Date/Time of Note DATE: 03/07/18 TIME: 08:56 Assessment/Plan VTE Prophylaxis Risk score (from [facility] [place])>0 risk: 2 SCD applied (from [facility] [place]): Yes Pharmacological prophylaxis: NA/contraindicated Pharm contraindication: surgical contra Lines/Catheters IV Catheter Type (from [facility]): Peripheral IV Urinary Cath still in place: No Assessment/Plan Assessment/Plan 1. Sepsis secondary to appendicitis vs ovarian abscess - Patient is s/p open appendectomy and denies any worsening of pain. Tolerating PO diet as well - WBC trending down but with 101 F fever last night. - some peritonitis and phlegmon seen on surgery - Surgery on board and consultation appreciated - ID on board and plans to continue current treatment with d/c on Augmentin once remains afebrile for >24 hrs 2. Leukocytosis - improving 3. Fevers - Tylenol PRN 4. Disposition - Once patient remains afebrile for 24 hours, can be d/c home on PO antibiotics Result Diagram: 03/07/18 0508 03/07/18 0508 Results 24hrs Laboratory Tests Test 03/07/18 05:08 White Blood Count 12.6 H Red Blood Count 3.39 L Hemoglobin 10.0 L Hematocrit 30.3 L Mean Corpuscular Volume 89.4 Mean Corpuscular Hemoglobin 29.5 Mean Corpuscular Hemoglobin Concent 33.0 Red Cell Distribution Width 12.4 Platelet Count 504 H Mean Platelet Volume 9.8 Immature Granulocytes % 2.000 H Neutrophils % 72.3 Lymphocytes % 17.7 Monocytes % 6.0 Eosinophils % 1.5 Basophils % 0.5 Nucleated Red Blood Cells % 0.0 Immature Granulocytes # 0.250 H Neutrophils # 9.1 H Lymphocytes # 2.2 Monocytes # 0.8 Eosinophils # 0.2 Basophils # 0.1 Nucleated Red Blood Cells # 0.0 Sodium Level 136 Potassium Level 4.1 Chloride Level 103 Carbon Dioxide Level 29 Anion Gap 4 L Blood Urea Nitrogen 8 Creatinine 0.54 Est Glomerular Filtrat Rate mL/min > 60 Glucose Level 128 Calcium Level 8.0 L Phosphorus Level 3.4 Magnesium Level 2.1 Subjective 24 Hr Interval Summary Free Text/Dictation Patient still with mild pain in right lower quadrant but states shes feeling better. Reported 101 fever last night but denies any new symptoms. Exam/Review of Systems Vital Signs Vitals Vital Signs Date Temp Pulse Resp B/P (MAP) Pulse Ox O2 O2 Flow FiO2 Time Delivery Rate 03/07/18 98.6 88 16 133/60 98 08:05 (84) 03/07/18 Room Air 02:00 03/05/18 20:15 Intake and Output 03/06/18 03/06/18 03/07/18 1515:00 23:00 07:00 IntakeIntake Total 50 ml 850 ml 500 ml BalanceBalance 50 ml 850 ml 500 ml Exam General: Patient is laying in bed and answers questions appropriately. no acute distress Mentation: Patient is alert and oriented 4, HEENT: NC/AT. PERRL. EOM intact Neck: Supple Respiratory: Clear to auscultation bilaterally. no wheezing or rhonchi Cardiovascular: S1, S2, regular rate and rhythm, no obvious murmurs Gastrointestinal: soft, mild tenderness to palpation RLQ, bowel sounds heard. no rebound or guarding Neurological: Moves all extremities spontaneously Skin: No new skin lesions, surgical incision sites clean and dry Medications Medications Current Medications IV Flush (NS 3 ml) 3 ml PER PROTOCOL IV ; Start 02/27/18 at 16:30 Acetaminophen (Tylenol Tab) 650 mg Q6H PRN PO PAIN LEVEL 1-3 OR FEVER Last admi nistered on 03/07/18 05:34; Admin Dose 650 MG; Start 02/27/18 at 16:30 Docusate Sodium (Colace) 100 mg Q12H PRN PO CONSTIPATION Last administered on 03/05/18 05:42; Admin Dose 100 MG; Start 02/27/18 at 16:30 Magnesium Hydroxide (Milk Of Mag) 30 ml DAILY PRN PO CONSTIPATION Last administered on 03/05/18 05:42; Admin Dose 30 ML; Start 02/27/18 at 16:30 Ondansetron HCl (Zofran Inj) 4 mg Q6H PRN IV NAUSEA Last administered on 03/04/18 14:17; Admin Dose 4 MG; Start 02/28/18 at 09:00 Phenol (Cepastat Lozenge) 1 lozenge Q1H PRN MT DRY MOUTH Last administered on 03/04/18 18:48; Admin Dose 1 LOZENGE; Start 02/28/18 at 22:00 Oxycodone/ Acetaminophen (Percocet (5/ 325)) 1 tab Q4H PRN PO MODERATE PAIN LEVEL 4-6 Last administered on 03/04/18at 21:31; Admin Dose 1 TAB; Start 03/01/18 at 12:00 Sucralfate (Carafate Susp) 1 gm QID PO Last administered on 03/06/18 21:01; Admin Dose 1 GM; Start 03/02/18 at 17:00 Pantoprazole (Protonix Tab) 40 mg DAILY@06 PO Last administered on 03/07/18at 06:34; Admin Dose 40 MG; Start 03/04/18 at 06:00 Meropenem/Sodium Chloride 50 ml @ 100 mls/hr Q12 IVPB Last administered on 03/06/18 21:01; Admin Dose 100 MLS/HR; Start 03/04/18 at 15:30 Guaifenesin (Robitussin Liquid Cup) 200 mg Q4H PRN PO cough; Start 03/07/18 at 00:30; Stop 03/08/18 at 00:30 Sodium Chloride 1,000 ml @ 100 mls/hr Q10H IV Last administered on 03/07/18at 02:27; Admin Dose 100 MLS/HR; Start 03/07/18 at 02:30; Stop 03/08/18 at 02:30 CROW CABEZAS MD Mar 07, 2018 08:56
[2018-03-07] MEDS: MEROPENEM 1 GM/50ML(PMX) 50 ML IVPB SCH ×2 (09:23→20:31)
[2018-03-07] MEDS: SUCRALFATE (100 MG/ML) 10ML CUP PO SCH ×4 (09:24→20:30)
--- NOTE | 2018-03-07 09:25 | QN ---
Documentation Comment Postoperative day #7 Temperature spike to 101 yesterday WBC down to 12,600 Abdominal examination is benign YAO drainage minimal serous Plan: YAO drain removed at bedside and dressing reapplied Patient can be discharged with p.o. antibiotics when medically cleared KELTON MOREL MD Mar 07, 2018 09:25
--- NOTE | 2018-03-07 13:49 | CONS ---
Date/Time of Note Date/Time of Note DATE: 03/07/18 TIME: 13:47 Assessment/Plan Assessment/Plan Hospital Course 1200 Patient spiked fever of 101 at 2:00 last night currently afebrile denies nausea vomiting diarrhea, looks comfortable, abdominal incision is clean and dry, YAO removed Chest x-ray ordered this morning revealed similar appearance of right basilar atelectasis/infiltrate with improved aeration of the left lung base Microbiology: blood culture remain negative, intraoperative culture grew alpha hemolytic strep species Antimicrobials: Meropenem Physical examination: This is a morbidly obese well-developed middle-aged woman who is alert in no distress. Head atraumatic normocephalic neck is supple chest rise symmetrical breath sounds diminished bases. Heart: S1-S2. Abdomen distended soft mid abdominal incision with reymundo clean dry and intact no drainage, YAO present. Bowel sounds present. Extremities without cyanosis. Assessment: 1. S/p sepsis on admission 2. Acute appendicitis with peritonitis and phlegmon, status post open appendectomy 02/28/18 3. Morbid obesity 4. Postoperative fevers secondary to atelectasis Plan: Clinically stable, leukocytosis resolving, chest x-ray noted, continue abx, encourage incentive spirometry use, anticipate dc on oral Augmentin Result Diagram: 03/07/18 0508 03/07/18 0508 Results 24hrs Laboratory Tests Test 03/07/18 05:08 White Blood Count 12.6 H Red Blood Count 3.39 L Hemoglobin 10.0 L Hematocrit 30.3 L Mean Corpuscular Volume 89.4 Mean Corpuscular Hemoglobin 29.5 Mean Corpuscular Hemoglobin Concent 33.0 Red Cell Distribution Width 12.4 Platelet Count 504 H Mean Platelet Volume 9.8 Immature Granulocytes % 2.000 H Neutrophils % 72.3 Lymphocytes % 17.7 Monocytes % 6.0 Eosinophils % 1.5 Basophils % 0.5 Nucleated Red Blood Cells % 0.0 Immature Granulocytes # 0.250 H Neutrophils # 9.1 H Lymphocytes # 2.2 Monocytes # 0.8 Eosinophils # 0.2 Basophils # 0.1 Nucleated Red Blood Cells # 0.0 Sodium Level 136 Potassium Level 4.1 Chloride Level 103 Carbon Dioxide Level 29 Anion Gap 4 L Blood Urea Nitrogen 8 Creatinine 0.54 Est Glomerular Filtrat Rate mL/min > 60 Glucose Level 128 Calcium Level 8.0 L Phosphorus Level 3.4 Magnesium Level 2.1 Consultation Date/Type/Reason Admit Date/Time Feb 27, 2018 at 14:17 Initial Consult Date 02/28/18 Type of Consult id Exam/Review of Systems Vital Signs Vitals Vital Signs Date Temp Pulse Resp B/P (MAP) Pulse Ox O2 O2 Flow FiO2 Time Delivery Rate 03/07/18 98.6 88 16 133/60 98 08:05 (84) 03/07/18 Room Air 02:00 03/05/18 20:15 Intake and Output 03/06/18 03/06/18 03/07/18 1515:00 23:00 07:00 IntakeIntake Total 50 ml 850 ml 500 ml BalanceBalance 50 ml 850 ml 500 ml Medications Medications Current Medications IV Flush (NS 3 ml) 3 ml PER PROTOCOL IV ; Start 02/27/18 at 16:30 Acetaminophen (Tylenol Tab) 650 mg Q6H PRN PO PAIN LEVEL 1-3 OR FEVER Last administered on 03/07/18 05:34; Admin Dose 650 MG; Start 02/27/18 at 16:30 Docusate Sodium (Colace) 100 mg Q12H PRN PO CONSTIPATION Last administered on 03/05/18 05:42; Admin Dose 100 MG; Start 02/27/18 at 16:30 Magnesium Hydroxide (Milk Of Mag) 30 ml DAILY PRN PO CONSTIPATION Last administered on 03/05/18 05:42; Admin Dose 30 ML; Start 02/27/18 at 16:30 Ondansetron HCl (Zofran Inj) 4 mg Q6H PRN IV NAUSEA Last administered on 03/04/18 14:17; Admin Dose 4 MG; Start 02/28/18 at 09:00 Phenol (Cepastat Lozenge) 1 lozenge Q1H PRN MT DRY MOUTH Last administered on 03/04/18 18:48; Admin Dose 1 LOZENGE; Start 02/28/18 at 22:00 Oxycodone/ Acetaminophen (Percocet (5/ 325)) 1 tab Q4H PRN PO MODERATE PAIN LEVEL 4-6 Last administered on 03/04/18 21:31; Admin Dose 1 TAB; Start 03/01/18 at 12:00 Sucralfate (Carafate Susp) 1 gm QID PO Last administered on 03/07/18 13:30; Admin Dose 1 GM; Start 03/02/18 at 17:00 Pantoprazole (Protonix Tab) 40 mg DAILY@06 PO Last administered on 03/07/18at 06:34; Admin Dose 40 MG; Start 03/04/18 at 06:00 Meropenem/Sodium Chloride 50 ml @ 100 mls/hr Q12 IVPB Last administered on 03/07/18at 09:23; Admin Dose 100 MLS/HR; Start 03/04/18 at 15:30 Guaifenesin (Robitussin Liquid Cup) 200 mg Q4H PRN PO cough; Start 03/07/18 at 00:30; Stop 03/08/18 at 00:30 Sodium Chloride 1,000 ml @ 100 mls/hr Q10H IV Last administered on 03/07/18at 02:27; Admin Dose 100 MLS/HR; Start 03/07/18 at 02:30; Stop 03/08/18 at 02:30 RAVINDRA PIERCE NP Mar 07, 2018 13:49
[2018-03-07 14:41] VITALS: BP 124/58; PULSE 87; RESP 16
[2018-03-07 19:52] VITALS: BP 130/65; PULSE 98; RESP 18
[2018-03-07] MEDS: OXYCODONE/ACETAMINOPHEN (5/325) TAB PO PRN (21:07)
[2018-03-08 02:29] VITALS: BP 152/69; PULSE 85; RESP 18
[2018-03-08] MEDS: SOD CHLORIDE 0.9% 1,000 ML IV SCH (04:41)
[2018-03-08] MEDS: PANTOPRAZOLE (EC) 40 MG TAB PO SCH (05:53)
[2018-03-08 07:46] VITALS: BP 132/64; PULSE 91; RESP 17
--- NOTE | 2018-03-08 08:14 | PN ---
Date/Time of Note Date/Time of Note DATE: 03/08/18 TIME: 08:14 Assessment/Plan VTE Prophylaxis Risk score (from [facility])>0 risk: 2 SCD applied (from [facility]): Yes Pharmacological prophylaxis: heparin Lines/Catheters IV C[facility]ter Type (from [facility]): Peripheral IV Urinary Cath still in place: No Assessment/Plan Assessment/Plan 1. Sepsis secondary to appendicitis vs ovarian abscess- resolving - Doing well and remains afebrile for 24 hours. WBC normalized as well and tolerating PO intake - Patient is s/p open appendectomy and denies any worsening of pain - Surgery on board and consultation appreciated - ID on board and continue Augmentin upon discharged 2. Leukocytosis- resolved 3. Fevers- resolved - Tylenol PRN 4. Disposition - Medically stable for discharge home Result Diagram: 03/08/18 0615 03/07/18 0508 Results 24hrs Laboratory Tests Test 03/08/18 06:15 White Blood Count 10.6 Red Blood Count 3.33 L Hemoglobin 9.6 L Hematocrit 29.6 L Mean Corpuscular Volume 88.9 Mean Corpuscular Hemoglobin 28.8 L Mean Corpuscular Hemoglobin Concent 32.4 Red Cell Distribution Width 12.4 Platelet Count 536 H Mean Platelet Volume 9.6 Immature Granulocytes % 1.800 H Neutrophils % 63.6 Lymphocytes % 25.6 Monocytes % 6.4 Eosinophils % 2.1 Basophils % 0.5 Nucleated Red Blood Cells % 0.0 Immature Granulocytes # 0.190 H Neutrophils # 6.7 Lymphocytes # 2.7 Monocytes # 0.7 Eosinophils # 0.2 Basophils # 0.1 Nucleated Red Blood Cells # 0.0 Subjective 24 Hr Interval Summary Free Text/Dictation Patient doing well and remains afebrile for the past 24 hours. Denies any nausea, vomiting, dizziness, chest pain, or shortness of breath. Exam/Review of Systems Vital Signs Vitals Vital Signs Date Temp Pulse Resp B/P (MAP) Pulse Ox O2 O2 Flow FiO2 Time Delivery Rate 03/08/18 97.8 91 17 132/64 94 07:46 (86) 03/07/18 Room Air 02:00 03/05/18 20:15 Intake and Output 03/07/18 03/07/18 03/08/18 1414:59 22:59 06:59 IntakeIntake Total 1210 ml 1215 ml 975 ml OutputOutput Total 13 ml BalanceBalance 1197 ml 1215 ml 975 ml Exam General: Patient is sitting in chair at bedside Neck: Supple Respiratory: Clear to auscultation bilaterally. no wheezing or rhonchi Cardiovascular: S1, S2, regular rate and rhythm, no obvious murmurs Gastrointestinal: soft,nontender to palpation, nondistended, bowel sounds heard. no rebound or guarding Neurological: Moves all extremities spontaneously Skin: No new skin lesions, surgical incision sites clean and dry Medications Medications Current Medications IV Flush (NS 3 ml) 3 ml PER PROTOCOL IV ; Start 02/27/18 at 16:30 Acetaminophen (Tylenol Tab) 650 mg Q6H PRN PO PAIN LEVEL 1-3 OR FEVER Last administered on 03/07/18 05:34; Admin Dose 650 MG; Start 02/27/18 at 16:30 Docusate Sodium (Colace) 100 mg Q12H PRN PO CONSTIPATION Last administered on 03/05/18 05:42; Admin Dose 100 MG; Start 02/27/18 at 16:30 Magnesium Hydroxide (Milk Of Mag) 30 ml DAILY PRN PO CONSTIPATION Last administered on 03/05/18 05:42; Admin Dose 30 ML; Start 02/27/18 at 16:30 Ondansetron HCl (Zofran Inj) 4 mg Q6H PRN IV NAUSEA Last administered on 03/04/18 14:17; Admin Dose 4 MG; Start 02/28/18 at 09:00 Phenol (Cepastat Lozenge) 1 lozenge Q1H PRN MT DRY MOUTH Last administered on 03/04/18 18:48; Admin Dose 1 LOZENGE; Start 02/28/18 at 22:00 Oxycodone/ Acetaminophen (Percocet (5/ 325)) 1 tab Q4H PRN PO MODERATE PAIN LEVEL 4-6 Last administered on 03/07/18 21:07; Admin Dose 1 TAB; Start 03/01/18 at 12:00 Sucralfate (Carafate Susp) 1 gm QID PO Last administered on 03/07/18 20:30; Adm in Dose 1 GM; Start 03/02/18 at 17:00 Pantoprazole (Protonix Tab) 40 mg DAILY@06 PO Last administered on 03/08/18 05:53; Admin Dose 40 MG; Start 03/04/18 at 06:00 Meropenem/Sodium Chloride 50 ml @ 100 mls/hr Q12 IVPB Last administered on 03/07/18at 20:31; Admin Dose 100 MLS/HR; Start 03/04/18 at 15:30 CROW CABEZAS MD Mar 08, 2018 08:14
[2018-03-08] MEDS ORDERED: AMOX1TAB10 PO (09:43)
[2018-03-08] MEDS ORDERED: HYDR-4011 PO (09:45)
[2018-03-08] MEDS: SUCRALFATE (100 MG/ML) 10ML CUP PO SCH ×2 (09:45→12:10)
[2018-03-08] MEDS: MEROPENEM 1 GM/50ML(PMX) 50 ML IVPB SCH (09:46)
--- NOTE | 2018-03-08 09:49 | PDOCDIS ---
Discharge Instructions DIAGNOSIS Discharge Diagnosis 1. Sepsis secondary to appendicitis vs ovarian abscess- resolving 2. Leukocytosis- resolved 3. Fevers- resolved CONDITION [id number] Patient Condition: [id number] Stable HOME CARE INSTRUCTIONS: [id number] Diet Instructions: [id number] Low Fat /Cholesterol FOLLOW UP/APPOINTMENTS Follow-up Plan 1. Follow up with your primary care physician in 1 week 2. Follow up with Dr. Willoughby for post operative check up and removal of reymundo in 1 week 3. Take pain medications as needed and keep well hydrated. Increase fiber intake to avoid constipation 4. You will need to continue on antibiotics for the next 5 days with next dose this afternoon 5. Avoid heavy lifting of more than 25 pounds for the next 4-6 weeks. Do not take a bath or submerge yourself in water for the next 10 days 6. If symptoms return or worsen, please go to your closest emergency department REFERRALS Other Referrals Rosalino Willoughby MD Specialty: General Surgery Comments Office Address [address] [place] [id number] Office CROW CABEZAS MD Mar 08, 2018 09:49
[2018-03-08] MEDS ORDERED: AMOXICILLIN/CLAV 875 MG TAB PO SCH (11:30)
--- NOTE | 2018-03-08 13:49 | CONS ---
Date/Time of Note Date/Time of Note DATE: 03/08/18 TIME: 13:48 Assessment/Plan Assessment/Plan Hospital Course 1030 No acute changes patient is alert feels good denies pain no fevers WBC 10.6 no shift no bands Microbiology: blood culture remain negative, intraoperative culture grew alpha hemolytic strep species Antimicrobials: Meropenem Physical examination: This is a morbidly obese well-developed middle-aged woman who is alert in no distress. Head atraumatic normocephalic neck is supple chest rise symmetrical breath sounds diminished bases. Heart: S1-S2. Abdomen distended soft mid abdominal incision with reymundo clean dry and intact no drainage, YAO present. Bowel sounds present. Extremities without cyanosis. Assessment: 1. S/p sepsis on admission 2. Acute appendicitis with peritonitis and phlegmon, status post open appendectomy 02/28/18 3. Morbid obesity 4. Postoperative fevers secondary to atelectasis Plan: Doing better, leukocytosis resolved, okay dc on oral Augmentin for 7 more days Result Diagram: 03/08/18 0615 03/07/18 0508 Results 24hrs Laboratory Tests Test 03/08/18 06:15 White Blood Count 10.6 Red Blood Count 3.33 L Hemoglobin 9.6 L Hematocrit 29.6 L Mean Corpuscular Volume 88.9 Mean Corpuscular Hemoglobin 28.8 L Mean Corpuscular Hemoglobin Concent 32.4 Red Cell Distribution Width 12.4 Platelet Count 536 H Mean Platelet Volume 9.6 Immature Granulocytes % 1.800 H Neutrophils % 63.6 Lymphocytes % 25.6 Monocytes % 6.4 Eosinophils % 2.1 Basophils % 0.5 Nucleated Red Blood Cells % 0.0 Immature Granulocytes # 0.190 H Neutrophils # 6.7 Lymphocytes # 2.7 Monocytes # 0.7 Eosinophils # 0.2 Basophils # 0.1 Nucleated Red Blood Cells # 0.0 Consultation Date/Type/Reason Admit Date/Time Feb 27, 2018 at 14:17 Initial Consult Date 02/28/18 Type of Consult id Exam/Review of Systems Vital Signs Vitals Vital Signs Date Temp Pulse Resp B/P (MAP) Pulse Ox O2 O2 Flow FiO2 Time Delivery Rate 03/08/18 97.8 91 17 132/64 94 07:46 (86) 03/07/18 Room Air 02:00 03/05/18 20:15 Intake and Output 03/07/18 03/07/18 03/08/18 1414:59 22:59 06:59 IntakeIntake Total 1210 ml 1215 ml 975 ml OutputOutput Total 13 ml BalanceBalance 1197 ml 1215 ml 975 ml RAVINDRA PIERCE NP Mar 08, 2018 13:49
--- NOTE | 2018-03-08 16:32 | DS ---
Date/Time of Note Date/Time of Note DATE: 03/08/18 TIME: 16:23 Discharge Summary Admission/Discharge Info Admit Date/Time Feb 27, 2018 at 14:17 Discharge Date/Time Mar 08, 2018 at 12:35 Discharge Diagnosis 1. Sepsis secondary to appendicitis vs ovarian abscess- resolving 2. Leukocytosis- resolved 3. Fevers- resolved Patient Condition: Stable Consults General Surgery- Dr. Willoughby Infectious Disease- Dr. Sung Procedures Postoperative Diagnosis Acute appendicitis with localized peritonitis and phlegmon involving cecum and terminal ileum Operation/Procedure Performed 1. Diagnostic laparoscopy 2. Open appendectomy 3. Placement of drain PROCEDURE: XR Chest. CLINICAL INDICATION: Shortness of breath, pneumonia TECHNIQUE: Single frontal radiograph of the chest. COMPARISON: CHEST 03/03/2018 FINDINGS: Similar appearance of right basilar atelectasis/infiltrate. Improved aeration of the left lung base. No pleural effusion. No pneumothorax. The cardiomediastinal silhouette is unremarkable. IMPRESSION: Similar appearance of right basilar atelectasis/infiltrate. Improved aeration of the left lung base. RPTAT: AADD .Eduard Steven MD, MD Date Time Electronically viewed and signed by .Eduard Steven MD, MD on 03/07/2018 13:39 PROCEDURE: XR Chest. CLINICAL INDICATION: Shortness of breath. TECHNIQUE: Single AP portable chest. COMPARISON: 02/27/2018 Chest x-ray FINDINGS: Cardiomegaly. The left base obscured by prominent cardiac apex. Small pleural effusion or atelectasis cannot be excluded. Right base atelectasis. Lungs are otherwise clear. Atherosclerotic calcification of the aorta.No pneumothorax. The osseous structures and soft tissues are unremarkable. IMPRESSION: 1. Cardiomegaly. Calcification of the left lung base which may reflect pleural effusion 2. Right base atelectasis. RPTAT:AAJJ Physician Sean Date Time Electronically viewed and signed by Physician Sean on 03/03/2018 16:31 PROCEDURE: CT abdomen and pelvis without contrast. CLINICAL INDICATION: Abdominal pain. Fever. TECHNIQUE: CT scan of the abdomen and pelvis without contrast was performed and is reconstructed at 2.5 mm contiguous axial intervals from the dome of the diaphragm to the inferior pubic rami.. The patient was scanned without intravenous contrast. Sagittal and coronal reformatted images were obtained from the axial source images. The calculated radiation dose measures 1203 mGy centimeters. The CTDI measures 20.7 mGy. Individualized dose optimization technique was used for the performance of this exam. This included 1. Automated exposure control. 2. Adjustment of the mA and / or kV according to the patient's size. 3. Use of iterative reconstructed technique. COMPARISON: None. FINDINGS: The lung bases are clear of any infiltrate or nodule. No effusion is seen. The liver is of normal size and contour with no mass or ductal dilatation. No gallstones are visualized. No splenic, adrenal or pancreatic abnormalities present. Kidneys are of normal size and contour. No calculus or masses seen. There is mild right hydroureter nephrosis. No stones are detected. No bladder masses stone is present. Prostate and seminal vesicles are normal. There is no aneurysm. No adenopathy is present. No bowel mass or obstruction is present. There is phlegmonous infiltration of the fat in the right lower quadrant. Noted is thickening of the wall of the cecum and the ileum. The appendix is not confidently visualized, however, there is suggestion of a markedly distended inflamed appendix medial to the cecum. There are multiple reactive regional nodes . Findings are highly suspicious for appendicitis. Abscess cannot be ruled out. No ascites or gross pneumoperitoneum is visualized. The osseous structures are intact. IMPRESSION: Phlegmonous infiltration fat right pelvis with suggestion of markedly distended inflamed appendix on limited CT without intravenous or adequate oral contrast. Findings are suspicious for acute appendicitis. Abscess cannot be ruled out. Probable reactive thickening wall of terminal ileum and cecum. Reactive regional nodes. Mild right hydroureter nephrosis. No stones seen. The point of obstruction appears to be at the site of the phlegmon. Fatty liver. .Emanuel Jones MD, MD Date Time Electronically viewed and signed by .Emanuel Jones MD, on 02/27/2018 14:04 PROCEDURE: Chest 1 views. CLINICAL INDICATION: Shortness of breath. Sepsis. TECHNIQUE: Single view of the chest was obtained. COMPARISON: None. FINDINGS: Mediastinum: Enlarged heart. Lungs: Hypoinflated lungs. Elevated right hemidiaphragm. Atelectasis versus minimal infiltrates in the right lower lobe. Atelectasis at the lung bases. No consolidations. No pneumothorax. Osseous structures: Intact. Other: None. IMPRESSION: Cardiomegaly. Atelectasis at the lung bases. Hypoinflated lungs with an elevated right hemidiaphragm.PROCEDURE: US Abdomen Limited. CLINICAL INDICATION: Abdominal pain and fever TECHNIQUE: Multiple real-time longitudinal and transverse images were acquired of the patient's right abdomen and retroperitoneum utilizing a curved array transducer. COMPARISON: None FINDINGS: Pancreas: The pancreas is suboptimally visualized. Liver: The liver shows normal shape, parenchymal echogenicity and echotexture. The right hepatic lobe measures 15.0 cm craniocaudal, which is within normal limits. There is no definite focal lesion visualized in the liver. There is appropriate direction of the main portal vein. Bile ducts: The intrahepatic bile ducts are not dilated. Common bile duct measures 3 mm in diameter, within normal limits. Gallbladder: The gallbladder is unremarkable without cholelithiasis, wall thickening, pericholecystic fluid, or sonographic Hirsch's sign. Kidneys: The right kidney measures 10.3 cm in length. The parenchymal echogenicity and thickness appear within normal range. No focal lesions are visualized. No hydronephrosis. There is no ascites visualized in the right abdomen. RPTAT: ZZ IMPRESSION: Unremarkable ultrasound of the right upper abdomen. .Isabel Rangel MD, Date Time Electronically viewed and signed by .Isabel Rangel MD, on 02/27/2018 14:28 RPTAT: AA .Cristino Vasquez MD, Date Time Electronically viewed and signed by .Cristino Vasquez MD, MD on 02/27/2018 13:10 Hx of Present Illness 52 yo F with no significant past medical history presents to ED with worsening RLQ abdominal pain for the past 4 days. Patient states she has been experiencing this intermittent pain in RLQ for the past month but only came today since has been having associated nausea, fever, chills, and loss of appetite for the past 4 days. Patient denies any chest pain, shortness of breath, dizziness, constipation, diarrhea, or urinary issues. She is nervous about going through an appendectomy secondary to son had complications during his recent procedure. Hospital Course Patient was admitted for surgical evaluation and underwent open appendectomy and placement of YAO drain. During surgery, patient was found with localized peritonitis and phlegmon involving the cecum and the terminal ileum. Infections disease was consulted and continued on IV antibiotics. Patient continued spiking fevers and WBC remained elevated. Adjustments were made to antibiotics and patients condition improved during course of hospitalization. Patient had minimal drainage in YAO and Surgeon removed drain prior to discharge. On day of discharge patient remained afebrile for >24 hours and WBC normalized. Her vitals and physical exam were stable and she was discharged home in stable condition, Home Meds [employer] Hydrocodone/Acetaminophen ([place] 5-325 Tablet) 1 Each Tablet, 1 EACH PO Q6 for 3 Days, #20 TAB Prov:CROW CABEZAS MD 03/08/18 Amoxicillin/Potassium Clav (Amox-Clav 875-125 mg Tablet) 875-125 mg Tab, 1 TAB PO BID for 5 Days, #10 TAB Prov:CROW CABEZAS MD 03/08/18 Follow-up Plan 1. Follow up with your primary care physician in 1 week 2. Follow up with Dr. Willoughby for post operative check up and removal of reymundo in 1 week 3. Take pain medications as needed and keep well hydrated. Increase fiber intake to avoid constipation 4. You will need to continue on antibiotics for the next 5 days with next dose this afternoon 5. Avoid heavy lifting of more than 25 pounds for the next 4-6 weeks. Do not take a bath or submerge yourself in water for the next 10 days 6. If symptoms return or worsen, please go to your closest emergency department Primary Care Provider Care Physician No Primary Time spent on discharge: > 30 minutes Pending Labs Laboratory Tests Test 03/08/18 06:15 White Blood Count 10.6 10^3/ul (4.8-10.8) Red Blood Count 3.33 10^6/ul (4.20-5.40) Hemoglobin 9.6 g/dl (12.0-16.0) Hematocrit 29.6 % (37.0-47.0) Mean Corpuscular Volume 88.9 fl (82.0-101.0) Mean Corpuscular Hemoglobin 28.8 pg (29.0-33.0) Mean Corpuscular Hemoglobin Concent 32.4 g/dl (32.0-37.0) Red Cell Distribution Width 12.4 % (11.5-14.5) Platelet Count 536 10^3/UL (140-415) Mean Platelet Volume 9.6 fl (7.4-10.4) Immature Granulocytes % 1.800 % (0.001-0.429) Neutrophils % 63.6 % (39.0-77.0) Lymphocytes % 25.6 % (15.0-51.0) Monocytes % 6.4 % (0.0-11.0) Eosinophils % 2.1 % (0.0-7.0) Basophils % 0.5 % (0.0-2.0) Nucleated Red Blood Cells % 0.0 /100WBC (0.0-0.0) Immature Granulocytes # 0.190 10^3/ul (0.0-0.031) Neutrophils # 6.7 10^3/ul (1.6-7.5) Lymphocytes # 2.7 10^3/ul (0.8-2.9) Monocytes # 0.7 10^3/ul (0.3-0.9) Eosinophils # 0.2 10^3/ul (0.0-0.5) Basophils # 0.1 10^3/ul (0.0-0.1) Nucleated Red Blood Cells # 0.0 10^3/ul (0.0-0.0) CROW CABEZAS MD Mar 08, 2018 16:32
== END 2018-03-08 12:35 | disposition home or self-care (01) | DRG 853 ==
LOC: E/R 12:02 → 2NE 14:17 → TEL 03-02 11:45 → 2NE 03-06 18:49
PROVIDERS: ADMIT Internal Medicine; ATTEND Internal Medicine
PROC: 0DJD4ZZ Inspection of Lower Intestinal Tract, Percutaneous Endoscopic Approach (ICD-10-PCS; 2018-02-28)
PROC: 0DTJ0ZZ Resection of Appendix, Open Approach (ICD-10-PCS; principal; 2018-02-28 07:30)
PROC: 3E0234Z Introduction of Serum, Toxoid and Vaccine into Muscle, Percutaneous Approach (ICD-10-PCS; 2018-03-08)
DX: A41.9 Sepsis, unspecified organism (principal); K35.33 Acute appendicitis with perforation, localized peritonitis, and gangrene, with abscess; J98.11 Atelectasis; E66.01 Morbid (severe) obesity due to excess calories; Z53.31 Laparoscopic surgical procedure converted to open procedure; Z23 Encounter for immunization
CPT/HCPCS: 36415; 71045; 74176; 76705; 80048; 80053; 81001; 83605; 83690; 83735; 84100; 84484; 85025; 85610; 85730; 87040; 87070; 87086; 88304; 93005; 96365; 96375; C9113; J0690; J0744; J1100; J1170; J1885; J2175; J2185; J2250; J2270; J2274; J2405; J2543; J2710; J2765; J2795; J3010; J3480; J7030; J7040